=== PATIENT | female | born 1955 | race Hispanic/Latino ===

== ENCOUNTER 2017-01-29 14:38 | Inpatient (IN) | payer OTHER ==
[~2017-01-29] VITALS: Ht 160 cm; Wt 65.8 kg
[~2017-01-29 14:38] MED LIST: GLUCOPHAGE500 MG PO; GOOD SENSE ASP325 MG PO; HEPARIN 2525000 UNI1 IV; LOPRESSOR 25MG25 MG PO; NOVOLIN R1000 UNIT2 SC; PLAVIX 75MG TAB75 MG PO; PRINIVIL 5MG5 MG PO; SIMVASTATIN40 MG PO
--- NOTE | 2017-01-29 14:49 | NUR ---
PT TO ED C/O CHEST PAIN AND "FEELING UNDER THE WEATHER" SINCE SUNDAY. ALSO C/O RIGHT SIDED JAW PAIN SINCE SUNDAY. ALSO STATES SUDDEN SHARP CHEST PAIN THAT COMES AND GOES. DENIES V/D. C/O NAUSEA. MOLD CLOSER HELPER IS DR CARRERA. PT HAS HAD CARDIAC STENTS IN THE PAST. EKG DONE. VSS.
--- NOTE | 2017-01-29 15:26 | ED CARDIAC/CP/PALPITATIONS ---
History of Present Illness General Chief Complaint: Chest Pain Stated Complaint: CHEST PAIN Source: patient, family, old records Exam Limitations: no limitations Allergies Coded Allergies: morphine (HYPERVENTILATE 01/29/17) Reconcile Medications Aspirin (Ecotrin*) 325 MG TABLET.DR 1 TAB PO QAM HEART/BLOOD (Reported) Glipizide (Glipizide ER) 10 MG TAB.ER.24 1 TAB PO QAM DM (Reported) Lisinopril 5 MG TABLET 1 TAB PO DAILY BP (Reported) Metformin HCl 500 MG TABLET 2 TAB PO BID DM (Reported) Metoprolol Tartrate 25 MG TABLET 1 TAB PO BID HEART/BP (Reported) Simvastatin (Simvastatin*) 40 MG TABLET 1 TAB PO QPM CHOLESTEROL (Reported) Triage Note: PT TO ED C/O CHEST PAIN AND "FEELING UNDER THE WEATHER" SINCE SUNDAY. ALSO C/O RIGHT SIDED JAW PAIN SINCE SUNDAY. ALSO STATES SUDDEN SHARP CHEST PAIN THAT COMES AND GOES. DENIES V/D. C/O NAUSEA. RESTAURANT GENERAL MANAGER IS DR CARRERA. PT HAS HAD CARDIAC STENTS IN THE PAST. EKG DONE. VSS. Triage Nurses Notes Reviewed? yes Aspirin Today: 325 mg x 1, provided at home HPI: Patient is a 61 year old female presents complaining of chest pain onset on Sunday. Pain is dull to bilateral chest. Cough onset on , nonproductive. Decreased appetite. Associated dyspnea with exertion. Chest pain is continuous since onset, patient has 2-3 second episodes intermittently of sharp severe pain that improves with rest. Intermittent right jaw pain. Nausea and vomiting on Sunday, none since then. Mild improvement with taking Ibuprofen and pressing on her chest wall. Symptoms feel similar to previous when patient needed a cardiac stent. Denies lower extremity swelling, fevers, chills. Patient took 325mg of Aspirin today. (JANICE VOGT,MIKE) Vital Signs & Intake/Output Vital Signs & Intake/Output Vital Signs Date Time Temp Pulse Resp B/P Pulse O2 O2 Flow FiO2 Ox Delivery Rate 01/29 1913 96.9 56 16 117/67 98 Room Air 01/29 1624 96.5 59 20 122/71 97 Room Air 01/29 1537 97 01/29 1446 96.6 76 20 103/70 100 Room Air Past History Travel History Traveled to [place] past 21 day No Medical History Any Pertinent Medical History? see below for history Neurological: migraine, TIA EENT: NONE Cardiovascular: CAD (s/p PCI of the LCX), hypertension, hyperlipidemia Respiratory: NONE Gastrointestinal: GERD Hepatic: GALLSTONES Renal: nephrolithiasis Musculoskeletal: NONE Psychiatric: insomnia Endocrine: diabetes Blood Disorders: NONE Cancer(s): NONE MEDIA MARKETING COORDINATOR/Reproductive: NONE History of MRSA: No History of VRE: No History of CDIFF: No Pneumonia Vaccine: 11/26/13 Influenza Vaccine: 12/09/08 Surgical History Surgical History: cholecystectomy, hysterectomy (total abdominal), cardiac stent Psychosocial History Who do you live with Son Services at Home None What is your primary language Kuwaiti Tobacco Use: Current Daily Use Daily Tobacco Use Amount/Type: => 5 Cigarettes daily ETOH Use: denies use Illicit Drug Use: denies illicit drug use Family History Family History, If Any: MOTHER Relation not specified for: FH: diabetes mellitus Hx Contributory? No (MIKE WATKINS) Review of Systems Review of Systems Constitutional: Reports: diaphoresis (none currently). Denies: chills, fever. EENTM: Reports: no symptoms. Respiratory: Reports: short of breath (with exertion). Denies: cough. Cardiovascular: Reports: see HPI. Denies: peripheral edema, syncope. GI: Reports: nausea, vomiting. Denies: abdominal pain. Genitourinary: Reports: no symptoms. Musculoskeletal: Reports: back pain. Skin: Reports: no symptoms. Neurological/Psychological: Reports: no symptoms. Hematologic/Endocrine: Reports: no symptoms. Immunologic/Allergic: Reports: no symptoms. (MIKE WATKINS) Physical Exam Physical Exam General Appearance: well developed/nourished, alert, awake Head: atraumatic, normal appearance Eyes: Bilateral: normal appearance, PERRL, EOMI. Ears, Nose, Throat: normal pharynx, normal ENT inspection, abnormal Tympanic (R) Neck: normal inspection, supple, full range of motion Respiratory: normal breath sounds, no respiratory distress, lungs clear Cardiovascular: regular rate/rhythm (no appreciable murmur) Peripheral Pulses: 2+ radial (R), 2+ radial (L), 1+ dorsalis pedis (R), 1+ dorsalis pedis (L) Gastrointestinal: normal bowel sounds, soft, non-tender Back: normal inspection, normal range of motion Extremities: normal inspection, normal capillary refill, normal range of motion, no edema Neurologic/Psych: no motor/sensory deficits, awake, alert, oriented x 3, normal mood/affect Skin: intact, normal color, warm/dry Lymphatic: no anterior cervical ino Core Measures ACS in differential dx? Yes ASA ordered for poss ACS? patient took aspirin at home today 325mg Severe Sepsis Present: No Septic Shock Present: No (MIKE WATKINS) Progress Differential Diagnosis: AMI, aortic dissection, atrial fibrillation, CHF/pulm edema, musculoskeletal pain, myocarditis, pericarditis, pneumonia, pneumothorax, pulmonary embolism, PUD/GERD, unstable angina, V-fib/V-Tach Diagnostic Imaging: Viewed by Me: Radiology Read. Discussed w/RAD: Radiology Read. CXR Impression: PATIENT: LILIBETH DOMINGUEZ I PRESENT AGE: 61 PATIENT ACCOUNT NO: [id number] : 56 LOCATION: [facility] ORDERING PHYSICIAN: MIKE VOGT SERVICE DATE: 01/29/17 EXAM TYPE: RAD - XRY- PORTABLE CHEST XRAY EXAMINATION: XR PORTABLE CHEST CLINICAL INFORMATION: Chest pain. COMPARISON: Portable chest x-ray 01/04/2016. TECHNIQUE: Portable AP view of the chest was obtained. FINDINGS: The lungs are well-expanded and clear without focal airspace consolidation. No pleural effusions or pneumothoraces are identified. Cardiomediastinal contours are within normal limits. Soft tissues are unremarkable. No acute osseous abnormality is identified. IMPRESSION: No acute pulmonary process. DICTATED BY: ANNABELLA PRADO MD DATE/TIME DICTATED:05/12 CHEERLEADING COACH:HARIS DATE/TIME TRANSCRIBED:01/29/171640 CONFIDENTIAL, DO NOT COPY WITHOUT APPROPRIATE AUTHORIZATION. <Electronically signed in Other Vendor System> SIGNED BY: ANNABELLA PRADO MD 01/29/171645 Initial ED EKG: normal axis, normal intervals, normal p-waves, normal QRS complex, normal sinus rhythm, no ST T wave changes Prior EKG: unchanged Comments: 01/29/2017 5:04:59 PM patient's case discussed with Dr. Palacios by me. (JANICE VOGT,MIKE) Plan of Care: Orders Procedure Date/time Status TROPONIN LEVEL 01/30 033 Active EKG 01/30 330 Active TROPONIN LEVEL 03/06 2130 Active EKG 01/29 2130 Active FingerStick- Glucose 01/29 1932 Active Code Status 01/29 1812 Active Admit to inpatient 01/29 1728 Active TRC EVALUATION (GEN) 01/29 1704 Active OXYGEN SETUP (GEN) 01/29 1704 Active Pathway - chart 01/29 1704 Active House Staff 01/29 1704 Active Patient Data 01/29 1704 Active Code Status 01/29 1704 Complete Patient Data 01/29 1652 Active Add-on Test (ER Only) 01/29 1625 Active PARTIAL THROMBOPLASTIN TIME 01/29 1534 Complete PROTHROMBIN TIME 01/29 1534 Complete Telemetry/Rotary Swaging Machine Operator 01/29 1525 Active TROPONIN LEVEL 01/29 1525 Complete COMPREHENSIVE METABOLIC PANEL 01/29 1525 Complete CBC WITHOUT DIFFERENTIAL 01/29 1525 Complete EKG 01/29 1440 Active VTE Mechanical Prophylaxis 01/29 UNK Active Vital Signs 01/29 UNK Active MISTAKE 01/29 UNK Active Telemetry/Rotary Swaging Machine Operator 01/29 UNK Active Intake & Output 01/29 UNK Active Current Medications Sig/Fletcher Start time Last Medication Dose Stop Time Status Admin Atorvastatin Calcium 20 MG 1700 01/30 1700 UNVr (Lipitor) Aspirin Buffered 325 MG QAM 01/30 1000 UNVr (Ecotrin) Clopidogrel Bisulfate 75 MG DAILY 01/30 1000 UNVr (Plavix) Lisinopril 5 MG DAILY 01/30 1000 AC (Prinivil) Insulin Aspart 0 TIDAC 01/30 0800 AC (NovoLOG) Metoprolol Tartrate 25 MG BID 01/29 2200 AC (Lopressor) Laboratory Tests 01/29/17 1536: Anion Gap 10, Estimated GFR > 60, BUN/Creatinine Ratio 25.0, Glucose 68, Calcium 9.6, Total Bilirubin 0.4, AST 35, ALT 48, Alkaline Phosphatase 74, Troponin I < 0.01, Total Protein 6.8, Albumin 3.9, Globulin 2.9, Albumin/Globulin Ratio 1.3, CBC w Diff NO MAN DIFF REQ, RBC 4.87, MCV 92.6, MCH 30.3, RDW 13.9, MPV 8.6, Gran % 51.3, Lymphocytes % 25.0, Monocytes % 8.4, Eosinophils % 14.3 H, Basophils % 1.0, Absolute Granulocytes 4.8, Absolute Lymphocytes 2.3, Absolute Monocytes 0.8 H, Absolute Eosinophils 1.3, Absolute Basophils 0.1, PUBS MCHC 32.7 L 01/29/17 1534: PT 10.5, INR 1.00, APTT 28 1625: Discussed with Dr. Carrera: recommends treating as unstable angina, give heparin and plavix and admit. Discussed with Dr. Don who will discuss with the hospitalist for admission. (MIKE WATKINS) Comments: 5:04pm pts case discussed by me with dr palacios (above note references this as well). (STEPHANIE CLAROS,ARI Priest) Departure Departure Time of Disposition: 1625 Disposition: STILL A PATIENT Condition: Stable Clinical Impression Primary Impression: Unstable angina Referrals: DARIAN CLAROS,TYLER Morris (PCP/Family) Departure Forms: Customer Survey General Discharge Information Admission Note Spoke With: DEANDRE CLAROS PhD,MANOJ Escobedo Documentation of Exam: Documentation of any treatments & extenuating circumstances including Concerns Regarding Discharge (functional status, medication knowledge or non-compliance, living conditions, etc.) that warrant an admission rather than observation: IV heparin, cardiology consultation, serial ekg, serial labs. Similar to previous chest pain that required cardiac stenting. Echocardiogram, possible stress test. May require transfer for cardiac catheterization (MIKE WATKINS) PA/DISTRICT MANAGER MAJOR ACCOUNTS SALES Co-Sign Statement Statement: ED Attending supervision documentation- [] I saw and evaluated the patient. I have also reviewed all the pertinent lab results and diagnostic results. I agree with the findings and the plan of care as documented in the PA's/DISTRICT MANAGER MAJOR ACCOUNTS SALES's documentation. [x] I have reviewed the ED Record and agree with the PA's/DISTRICT MANAGER MAJOR ACCOUNTS SALES's documentation. [] Additions or exceptions (if any) to the PAs/DISTRICT MANAGER MAJOR ACCOUNTS SALES's note and plan are summarized below: [] (STEPHANIE CLAROS,ARI Priest) Critical Care Note Critical Care Note Critical Care Time: 30-74 min (MIKE WATKINS)
--- NOTE | 2017-01-29 15:35 | NUR ---
TRIAGE NOTE APPRECIATED PT STATES SHE GETS SOB WHILE CLIMBING STAIRS CHEST PAIN ON AND OFF THAT LAST A FEW SECONDS. PT STATES THAT SHE HAS BURNING IN HER CHEST AT TIMES PT WITH HX OF STENT BLOODS DRAWN AND SENT IV ESTABLISHED PA STUDENT AT BEDSIDE FOR EVAL. PT ON MONITOR HR IN THE 60'S NSR
[2017-01-29 15:40] LABS: ABSOLUTE BASOPHIL COUNT 0.1 /CUMM (0.0-0.2); ABSOLUTE EOSINOPHIL COUNT 1.3 /CUMM (0.0-0.7); ABSOLUTE GRANULOCYTE CT 4.8 /CUMM (1.4-6.5); ABSOLUTE LYMPH COUNT 2.3 /CUMM (1.2-3.4); ABSOLUTE MONOCYTE COUNT 0.8 /CUMM (0.10-0.60); EOSINOPHIL % 14.3 % (0-5); GRANULOCYTE % 51.3 % (42.2-75.2); HEMATOCRIT 45.2 % (37-47); MEAN CORPUSCULAR HGB 30.3 PG (27.0-31.0); MEAN CORPUSCULAR HGB CONC 32.7 G/DL (33.0-37.0); MEAN CORPUSCULAR VOLUME 92.6 FL (81.0-99.0); MEAN PLATELET VOLUME 8.6 FL (7.4-10.4); PLATELET COUNT 171 /CUMM (130-400); RBC DISTRIBUTION WIDTH 13.9 % (11.5-14.5); RED BLOOD CELL CT 4.87 /CUMM (4.20-5.40); WHITE BLOOD CELL COUNT 9.4 /CUMM (4.8-10.8)
[2017-01-29] MEDS ORDERED: SIMVASTATIN40 M1 PO (16:14)
[2017-01-29] MEDS ORDERED: ASPIRIN EC325 M2 PO (16:15)
[2017-01-29] MEDS ORDERED: METFORMIN HCL500 M3 PO (16:15)
[2017-01-29] MEDS ORDERED: METOPROLOL TART25 M1 PO (16:15)
[2017-01-29] MEDS ORDERED: LISINOPRIL5 M1 PO (16:15)
[2017-01-29] MEDS ORDERED: GLIPIZIDE ER10 M1 PO (16:16)
--- NOTE | 2017-01-29 16:37 | Cons- Cardiology ---
General Information and HPI Consulting Request Date of Consult: 01/29/17 Requested By: ER History of Present Illness: Carly is a 61 year old female who carries a history of diabetes, TIA, and tobacco abuse. She also has a history of coronary artery disease and is s/p stent placement to her left circumflex. Carly was in her usual state of good health until when she noted shortness of breath. On Sunday, her symptoms progressed to a moderate right to midsternal chest pressure that radiated to her right neck. This discomfort is very similar to that experienced prior to her PCI of the LCX. This discomfort is currently mild but not resolved. Carly also has a cough but does not think that her chest discomfort is related to chest soreness from coughing. At baseline Carly is active without chest discomfort, lightheadedness or palpitations. The exception is some exertional shortness of breath that is unchanged. Last December this patient complained of chest discomfort and in response to this symptom I opted to repeat a cardiac catheterization. This study showed a 50% mid LAD lesion which was evaluated by fractional flow reserved and was not found to be flow limiting. She has a patent left main and luminal irregularities in her LCX and non-dominant RCA with an EF of 55% . Her LCX is patent at the prior stent site. Carly has had some intermittent cramps in her right leg. To Review This Patient's Past History: In March of 2012, Carly experienced a moderate midsternal chest pressure radiating to her arms associated with shortness of breath, diaphoresis, and palpitations. A stress test was therefore performed which was remarkable for chest discomfort and ST elevations in the inferior and lateral leads. ST depressions were also noted. In consideration of the above, cardiac catheterization was performed in April of 2012 and this procedure disclosed a 99% mid left circumflex lesion which was dilated and stented with a 4.0 x 12 mm drug coated Resolute stent to zero percent residual stenosis with normal flow. The stent crossed a moderate size obtuse marginal II which was dilated with a 2.0 x 8.0 mm balloon to a 30% non-flow limiting residual stenosis. Otherwise, the patient's coronary anatomy consists of a normal left main. The LAD had luminal irregularities. This was a large vessel that wrapped around the apex. The RCA was nondominant, patent, and tortuous. Her overall EF was normal at 55%. The patient's last echo showed a normal EF of 60% with trace MR and mild TR. Allergies/Medications Allergies: Coded Allergies: morphine (HYPERVENTILATE 01/29/17) Home Med List: Aspirin (Ecotrin*) 325 MG TABLET.DR 1 TAB PO QAM HEART/BLOOD (Reported) Glipizide (Glipizide ER) 10 MG TAB.ER.24 1 TAB PO QAM DM (Reported) Lisinopril 5 MG TABLET 1 TAB PO DAILY BP (Reported) Metformin HCl 500 MG TABLET 2 TAB PO BID DM (Reported) Metoprolol Tartrate 25 MG TABLET 1 TAB PO BID HEART/BP (Reported) Simvastatin (Simvastatin*) 40 MG TABLET 1 TAB PO QPM CHOLESTEROL (Reported) Past History Travel History Traveled to [place] past 21 day No Medical History Neurological: migraine, TIA EENT: NONE Cardiovascular: CAD (s/p PCI of the LCX), hypertension, hyperlipidemia Respiratory: NONE Gastrointestinal: GERD Hepatic: GALLSTONES Renal: nephrolithiasis Musculoskeletal: NONE Psychiatric: insomnia Endocrine: diabetes Blood Disorders: NONE Cancer(s): NONE STAFF CYTOTECHNOLOGIST/Reproductive: NONE Surgical History Surgical History: cholecystectomy, hysterectomy (total abdominal), cardiac stent Family History Relations & Conditions If Any: MOTHER Relation not specified for: FH: diabetes mellitus Psychosocial History Who Do You Live With? self Services at Home: None Primary Language: Guinean Smoking Status: Former Smoker (1/2 ppd until 2013) ETOH Use: denies use Illicit Drug Use: denies illicit drug use Exam & Diagnostic Data Vital Signs and I&O Vital Signs Date Time Temp Pulse Resp B/P Pulse O2 O2 Flow FiO2 Ox Delivery Rate 01/29 1624 96.5 59 20 122/71 97 Room Air 01/29 1537 97 01/29 1446 96.6 76 20 103/70 100 Room Air Intake & Output 01/29 1600 01/29 0800 / 0000 01/28 1600 01/28 0800 01/28 0000 Intake Total 0 Output Total Balance 0 Intake, Oral 0 Patient 145 lb Weight Physical Exam: General: WD/ WN female in NAD; alert and oriented x 3 HEENT: NC/AT, PERRL, EOMI, clear oropharyx with mmm Neck: no JVD, no carotid bruit Heart: RRR w/o murmur Lungs: clear bilaterally Abdomen: soft, NT, +ve bowel sounds Extremties: no edema Assessment/Plan Assessment/Plan * This patient has symptoms that are suggestive of unstable angina. We will begin IV heparin, and Plavix and will continue aspirin. Her heart rate appears to be well controlled. We will monitor her on telemetry and if recurrent chest discomfort will also begin NTG past. Follow three sets of cardiac enzymes. Continue her statin. In consideration of her cough that is suspected to be from Lisinopril, we will stop this medication in favor of Losartan 25mg daily. * It should be recalled that this patient has a moderate size OM2 that underwent plain balloon angioplasty and this vessel is at increased risk for restenosis compared with a stented vessel. It did look well on her most recent cardiac catheterization however. She continues to harbor a 50% mid LAD lesion that on her last cardiac catheterization did not appear to be flow limiting. Consult Acknowledgment - Thank you for your consult request.
--- NOTE | 2017-01-29 16:46 | RADIOLOGY REPORT ---
EXAMINATION: XR PORTABLE CHEST CLINICAL INFORMATION: Chest pain. COMPARISON: Portable chest x-ray 01/04/2016. TECHNIQUE: Portable AP view of the chest was obtained. FINDINGS: The lungs are well-expanded and clear without focal airspace consolidation. No pleural effusions or pneumothoraces are identified. Cardiomediastinal contours are within normal limits. Soft tissues are unremarkable. No acute osseous abnormality is identified. IMPRESSION: No acute pulmonary process.
--- NOTE | 2017-01-29 16:48 | NUR ---
IV HEPRIN IFUSING DIRECTED PT AMBULATED TO BR GAIT STEADY
[2017-01-29 16:55] LABS: PT 10.5 SEC (9.4-12.5); PTT 28 SEC (25-37)
--- NOTE | 2017-01-29 17:05 | History & Physical ---
TIFFANIJANEANUPTORI 01/29/17 1704: General Information and HPI MD Statement: I have seen and personally examined LILIBETH DOMINGUEZ I and documented this H&P. The patient is a 61 year old F who presented with a patient stated chief complaint of chest pain Source of Information: patient, old records Exam Limitations: no limitations History of Present Illness: 61-year-old woman with past medical history significant for history of diabetes mellitus 2, dyslipidemia, TIA, coronary artery disease and is s/p stent placement to her left circumflex (April 2012) came to [facility] for evaluation of chest pain. Stated that she has been feeling short of breath since when walking up stairs, doing laundry. Prior to that she was at her baseline. On Sunday she was woken up by midsternal chest pain that was 6 out of 10, she also remembers having left-sided jaw pain at that time. Since then she's been having intermittent chest pressure at rest that lasts a few seconds and she's been having these episodes up to 3 to times a day. On interview she stated that her pain was 3 out of 10. Also reports some palpitations on exertion. Denies lower extremity swelling, fever, chills, orthopnea. Allergies/Medications Allergies: Coded Allergies: morphine (HYPERVENTILATE 01/29/17) Home Med list Aspirin (Ecotrin*) 325 MG TABLET.DR 1 TAB PO QAM HEART/BLOOD (Reported) Glipizide (Glipizide ER) 10 MG TAB.ER.24 1 TAB PO QAM DM (Reported) Lisinopril 5 MG TABLET 1 TAB PO DAILY BP (Reported) Metformin HCl 500 MG TABLET 2 TAB PO BID DM (Reported) Metoprolol Tartrate 25 MG TABLET 1 TAB PO BID HEART/BP (Reported) Simvastatin (Simvastatin*) 40 MG TABLET 1 TAB PO QPM CHOLESTEROL (Reported) Compliance With Home Meds: GOOD Past History Travel History Traveled to [place] past 21 day No Medical History Neurological: migraine, TIA EENT: NONE Cardiovascular: CAD (s/p PCI of the LCX), hypertension, hyperlipidemia Respiratory: NONE Gastrointestinal: GERD Hepatic: GALLSTONES Renal: nephrolithiasis Musculoskeletal: NONE Psychiatric: insomnia Endocrine: diabetes Blood Disorders: NONE Cancer(s): NONE RIPENING ROOM OPERATOR/Reproductive: NONE History of MRSA: No History of VRE: No History of CDIFF: No Pneumonia Vaccine: 11/26/13 Influenza Vaccine: 12/09/08 Surgical History Surgical History: cholecystectomy, hysterectomy (total abdominal), cardiac stent Past Family/Social History Family History Relations & Conditions if any MOTHER FH: breast cancer in first degree relative MOTHER Relation not specified for: FH: diabetes mellitus Psychosocial History Who Do You Live With? self Services at Home: None Primary Language: Zambian Smoking Status: Current Some Day Smoker (/ ppd until 2013) ETOH Use: denies use Illicit Drug Use: denies illicit drug use Functional Ability ADLs Independent: dressing, eating, toileting, bathing. Ambulation: independent IADLs Independent: shopping, housework, finances, food prep, telephone, transportation , medication admin. Review of Systems Review of Systems Constitutional: Denies: chills, diaphoresis, fever, malaise, weakness, unexplained weight loss. Cardiovascular: Reports: chest pain, palpitations. Denies: edema, orthopena, peripheral edema, syncope. Respiratory: Denies: cough, hemoptysis, orthopnea, short of breath, sputum production, stridor, wheezing. GI: Denies: abdominal pain, bloating, constipation, diarrhea, distention, bowel incontinence, melena, nausea, bloody stool, changes in stool, vomiting, steatorrhea. Genitourinary: Denies: discharge, dysuria, frequency, hematuria, hesitation, nocturia, pain, urgency. Exam & Diagnostic Data Last 24 Hrs of Vital Signs/I&O Vital Signs Date Time Temp Pulse Resp B/P Pulse O2 O2 Flow FiO2 Ox Delivery Rate 01/29 1913 96.9 56 16 117/67 98 Room Air 01/29 1624 96.5 59 20 122/71 97 Room Air 01/29 1537 97 01/29 1446 96.6 76 20 103/70 100 Room Air Intake & Output 01/29 1600 01/29 0800 01/29 0000 Intake Total 0 Output Total Balance 0 Intake, Oral 0 Patient 145 lb Weight Physical Exam General Appearance Alert, Oriented X3, Cooperative, No Acute Distress Skin No Significant Lesion HEENT Atraumatic, PERRLA, EOMI, Mucous Membr. moist/pink Neck Supple, No JVD, +2 Carotid Pulse wo Bruit Lymphatic Cervical nl Cardiovascular Regular Rate, Normal S1, Normal S2 Lungs Clear to Auscultation, Normal Air Movement Abdomen Normal Bowel Sounds, Soft, No Tenderness Extremities No Edema Last 24 Hrs of Labs/Tacos: Laboratory Tests 01/29/17 1536: Anion Gap 10, Estimated GFR > 60, BUN/Creatinine Ratio 25.0, Glucose 68, Calcium 9.6, Total Bilirubin 0.4, AST 35, ALT 48, Alkaline Phosphatase 74, Troponin I < 0.01, Total Protein 6.8, Albumin 3.9, Globulin 2.9, Albumin/Globulin Ratio 1.3, CBC w Diff NO MAN DIFF REQ, RBC 4.87, MCV 92.6, MCH 30.3, RDW 13.9, MPV 8.6, Gran % 51.3, Lymphocytes % 25.0, Monocytes % 8.4, Eosinophils % 14.3 H, Basophils % 1.0, Absolute Granulocytes 4.8, Absolute Lymphocytes 2.3, Absolute Monocytes 0.8 H, Absolute Eosinophils 1.3, Absolute Basophils 0.1, PUBS MCHC 32.7 L 01/29/17 1534: PT 10.5, INR 1.00, APTT 28 Diagnostic Data EKG Results NSR T wave inversions in lead III, V2 seen in previous EKG CXR Results SERVICE DATE: 01/29/17-161 EXAM TYPE: RAD - XRY-PORTABLE CHEST XRAY FINDINGS: The lungs are well-expanded and clear without focal airspace consolidation. No pleural effusions or pneumothoraces are identified. Cardiomediastinal contours are within normal limits. Soft tissues are unremarkable. No acute osseous abnormality is identified. IMPRESSION: No acute pulmonary process. Assessment/Plan Assessment: 61-year-old woman with past medical history significant for history of diabetes mellitus 2, dyslipidemia, TIA, coronary artery disease and is s/p stent placement to her left circumflex (April 2012) As Ranked By This Provider Problem List: 1. CHEST PAIN Assessment/Plan Most likely unstable angina given her extensive cardiac history will monitor on telemetry Cardiology aware of patient and recommended starting IV heparin and Plavix along with aspirin Nitropaste for pain management Will trend EKG and troponin to rule out ACS Continue statin Cardiology recommending lisinopril to be discontinued secondary to her cough and losartan to be started 2. Diabetes Assessment/Plan Monitor fingersticks Hold metformin while in the hospital, Place on sliding scale 3. Hypertension Assessment/Plan Continue Lopressor 4. DVT prophylaxis 5. Full code status Core Measures/Miscellaneous Acute Coronary Syndrome ACS Diagnosis: No Cerebrovascular Accident CVA/TIA Diagnosis: No Congestive Heart Failure CHF Diagnosis: No Venous Thromboembolism VTE Risk Factors: Age > 40 [facility] prophylaxis d/t: No contraindications No VTE Pharm Prophylaxis d/t: No contraindications VTE Diagnosis: No VTE Type: NONE VTE Confirmed by (Test): NONE Severe Sepsis Severe Sepsis Present: No Septic Shock Septic Shock Present: No Miscellaneous Documentation Attending Case Discussed With: ALEX CHAVEZ MD Primary Care Physician: TYLER FARMER MD Patient sees these Specialists Dr. Zelaya Level of Patient Care: Telemetry CONSTANTINO MUNIZ 01/29/17 1748: Resident Review Statement Resident Statement: examined this patient, discussed with architecture intern, agreed with architecture intern, reviewed images Other Findings: This is a 61-year-old lady with past medical history significant for CAD status post stent placement to her left circumflex, TIA, diabetes, tobacco dependence who presents to the hospital with intermittent chest pain for 3 days. According to the patient, her chest pains start at rest but worsen w/exertion. Her chest pains are mid-strenal, 6/10, radiating to her right jaw. She has also been experiencing occasional episodes of exertional dyspnea, palpitation. The patient denies any chest discomfort/pain at the time of our interview. She also reprots chronic cough. Denies fevers/chills, nausea, vomiting, dizziness, lightheadedness, palpitation. Had cardiac cath Dec 2015 which showed EF of 50%. VS: T: 96.6, WI 76, BP 103/70, RR 20, O2 sat 100% RA Ph/Ex: AAOx3, NAD, HEENT: Moist mm, head NCAT, PERRLA, EOMI Neck: Supple, no JVD , no carotid bruits, no LAD. CV: RRR, no murmur. Lungs: CTABL, Abdomen: NL BS, Sotf, NT, ND. Ext: No edema. Neurology exam non-focal. Reflexes/pulse wnl and symm. Pertinent Lab data: CBC/BEP unremarkable EKG: NSR T wave inversions noted in lead III, V2 (also present in previous EKG) CXR: No acute pulmonary process. Problem list/Plan: #Chest pain: * Likely Unstable Angina * Cardiology was consulted in the ED and the patient was started on heparin drip and plavix * campus monitor * Echo done Dec 2015 (ejection fraction NL) : No need for a repeat echo at this point. * r/o ACS w/serial trop/ekg * Check TFT * Check stool for hemoccult. * Add nitrated to regimen if patient develops recurrent CP. * C/W Statins, BB, ASA * Will change Lisinopril to Losartan 2/2 cough #DM: * Chronic/stable * Cardiac/DM diet * Accucheks * Will hold oral diabetic meds while admitted to the hospital and maintain her on INS SS. # HTN: * Chronic/Stable * C/W home meds including metoptrolol 25 MG BID. #Tobacco dependence: * Smoking cessation counseling done. #DVT PPX: Pt on hepari drip #Code Status: * ALEX PEREIRA MD 01/29/17 7881: Attending MD Review Statement Attending Statement Attending MD Statement: examined this patient, discuss w/resident/PA/SHEET METAL ASSEMBLER, agreed w/resident/PA/SHEET METAL ASSEMBLER, reviewed EMR data (avail) Attending Assessment/Plan: 61F PMH HTN, T2DM, active smoker, CAD s/p stent to LCx, last cardiac cath one year ago presenting with 3 days of intermittent chest pain occuring at rest and worsening with exertion, associated with dyspnea on exertion, and generalized fatigue. EKG NSR no acute changes, first troponin negative. Symptoms highly suspicious for unstable angina. Patient is comfortable now at rest after receiving morphine. Plan - Admit to telemetry - Heparin drip - Continue ASA and Plavix - Continue statin and ACEi - Serial enzymes and EKG - Cardiology consult with Dr. Zelaya - Continue home medications
--- NOTE | 2017-01-29 17:46 | NUR ---
HOUSE STAFF IN TO SEE PT
--- NOTE | 2017-01-29 18:46 | NUR ---
Emergency Dept [facility] Admit Note: To be admitted to [facility] by APERGIS with UNSTABLE ANGINA as the diagnosis, to [phone] location. Nursing Workers' Compensation Magistrate and admitting notified 01/29/17 at 0410
--- NOTE | 2017-01-29 19:14 | Admission Certification ---
Admission Certification Certification Statement - As attending physician, I certify that at the time of - admission, based on clinical presentation, severity of - symptoms, need for further diagnostic testing and - therapeutic interventions, and risk of adverse outcomes - without in-hospital treatment, in my clinical assessment, - this patient requires an acute hospital stay for a minimum - of two nights or longer. I have also considered psychsocial - factors such as support system, advanced age, financial - issues, cognitive issues, and failed out-patient treatments, - past re-admission history, safety of patient, and lack of - compliance as applicable. Specific rationale supporting this admission is: Unstable angina
--- NOTE | 2017-01-29 19:19 | NUR ---
REPORT GIVEN TO TEREZA SCHRADER
[2017-01-29 21:50] VITALS: BP 100/60; BP 138/78
[2017-01-29 23:21] LABS: PTT 62 SEC (25-37)
[2017-01-30 01:11] VITALS: BP 110/70
[2017-01-30 03:56] LABS: ABSOLUTE BASOPHIL COUNT 0 /CUMM (0.0-0.2); ABSOLUTE EOSINOPHIL COUNT 1.3 /CUMM (0.0-0.7); ABSOLUTE GRANULOCYTE CT 2.7 /CUMM (1.4-6.5); ABSOLUTE LYMPH COUNT 2.4 /CUMM (1.2-3.4); ABSOLUTE MONOCYTE COUNT 0.7 /CUMM (0.10-0.60); BASOPHIL % 0.5 % (0.0-2.0); EOSINOPHIL % 18.1 % (0-5); GRANULOCYTE % 38.2 % (42.2-75.2); HEMATOCRIT 40.7 % (37-47); MEAN CORPUSCULAR HGB 30.9 PG (27.0-31.0); MEAN CORPUSCULAR HGB CONC 33.3 G/DL (33.0-37.0); MEAN CORPUSCULAR VOLUME 92.8 FL (81.0-99.0); PLATELET COUNT 154 /CUMM (130-400); RBC DISTRIBUTION WIDTH 14.1 % (11.5-14.5); RED BLOOD CELL CT 4.39 /CUMM (4.20-5.40); WHITE BLOOD CELL COUNT 7.2 /CUMM (4.8-10.8)
[2017-01-30 07:48] VITALS: BP 112/74
--- NOTE | 2017-01-30 10:39 | PN- Cardiology ---
Subjective Subjective: * Patient reports a persistent low grade chest discomfort. * Normal ECG and normal cardiac enzymes times 3 sets Objective Vital Signs and I&Os Vital Signs Date Time Temp Pulse Resp B/P Pulse O2 O2 Flow FiO2 Ox Delivery Rate 01/30 0748 98.1 78 20 112/74 95 Room Air 01/30 0111 98.0 69 20 110/70 92 Room Air 01/29 2250 98 03/ 2246 61 138/78 03/ 2150 97.8 61 20 138/78 96 Room Air 01/29 2119 Room Air 01/29 1913 96.9 56 16 117/67 98 Room Air 01/29 1624 96.5 59 20 122/71 97 Room Air 01/29 1537 97 03/ 1446 96.6 76 20 103/70 100 Room Air Intake & Output 01/30 1600 01/30 0800 / 0000 / 1600 01/29 0800 03/ 0000 Intake Total 575 240 0 Output Total Balance 575 240 0 Intake, IV 95 Intake, Oral 480 240 0 Patient 145 lb 145 lb Weight Physical Exam: General: WD/ WN female in NAD; alert and oriented x 3 HEENT: NC/AT, PERRL, EOMI, clear oropharyx with mmm Heart: RRR w/o murmur Lungs: clear bilaterally Extremties: no edema Assessment/Plan Assessment/Plan * This patient continues to have mild, but constant chest discomfort without any rise in cardiac enzymes or electrocardiographic changes. I have only a moderate suspicion of myocardial ischemia. This patient should be risk stratified with a treadmill nuclear stress test. The patient feels tired and is not up to this today. We can consider doing this as an outpatient. * Continue her current drug regimen including Losartan instead of Lisinopril. There is the possibility of musculoskeletal pain due to coughing. Continue telemetry? Yes
[2017-01-30 12:19] LABS: PTT 42 SEC (25-37)
--- NOTE | 2017-01-30 12:59 | PN- Housestaff ---
TORI ORELLANA 01/30/17 1259: Subjective Follow-up For: instable angina Tele-Events Since Last Visit: Sinus rhythm, heart rate 70 to 80s one transient episode down to 43 no overnight events Subjective: Seen and examined patient, offers no complaints says she is currently chest pain -free. Denies shortness of breath. Review of Systems Constitutional: Denies: chills, diaphoresis, fever, malaise, weakness, unexplained weight loss. Cardiovascular: Denies: chest pain, edema, orthopena, palpitations, peripheral edema, syncope. Respiratory: Denies: cough, hemoptysis, orthopnea, short of breath, sputum production, stridor, wheezing. Objective Last 24 Hrs of Vital Signs/I&O Vital Signs Date Time Temp Pulse Resp B/P Pulse O2 O2 Flow FiO2 Ox Delivery Rate 01/30 1613 98.1 59 20 120/72 96 Room Air / 1048 78 112/74 03/ 1048 78 112/74 03/ 0748 98.1 78 20 112/74 95 Room Air 03/ 0111 98.0 69 20 110/70 92 Room Air 03/06 2250 98 03/06 2246 61 138/78 03/06 2150 97.8 61 20 138/78 96 Room Air 03/ 2119 Room Air / 1913 96.9 56 16 117/67 98 Room Air Intake & Output 01/30 1600 /07 0800 03/ 0000 Intake Total 875 575 240 Output Total 800 Balance 75 575 240 Intake, IV 125 95 Intake, Oral 750 480 240 Output, Urine 800 Patient 145 lb Weight Physical Exam General Appearance: Alert, Oriented X3, Cooperative, No Acute Distress Neck: Supple Cardiovascular: Regular Rate, Normal S1, Normal S2 Lungs: Clear to Auscultation, Normal Air Movement Extremities: No Edema Current Medications: Current Medications Sig/Fletcher Start time Last Medication Dose Route Stop Time Status Admin Acetaminophen 325 MG Q6-PRN PRN 01/30 0130 AC PO Aspirin Buffered 325 MG QAM 01/30 1000 AC 01/30 PO 1048 Atorvastatin Calcium 20 MG 1700 01/30 1700 AC 01/30 PO 1627 Benzocaine/Menthol 1 MOLINA Q2P PRN 01/29 2300 AC PO Clopidogrel Bisulfate 75 MG DAILY 01/30 1000 AC 01/30 PO 1048 Heparin Sodium 25,000 UNIT Q24H 01/29 1630 AC 01/30 (Porcine) IV 01/31 06 1627 Sodium Chloride 500 ML Insulin Aspart 0 TIDAC 01/30 0800 AC SC Lisinopril 5 MG DAILY 01/30 1000 CAN PO Losartan Potassium 25 MG DAILY 01/30 1000 AC 01/30 PO 1048 Metoprolol Tartrate 25 MG BID 01/29 2200 AC 01/30 PO 01/31 0000 1048 Patient Medication 1 ED .[facility] 01/30 1355 [facility] ED 01/30 1356 Last 24 Hrs of Lab/Tacos Results Last 24 Hrs of Labs/Mics: Laboratory Tests 01/30/17 1650: APTT > 120 *H 01/30/17 1030: APTT 42 H 01/30/17 0330: Troponin I < 0.01 01/30/17 0330: Anion Gap 7, Estimated GFR > 60, BUN/Creatinine Ratio 22.9, CBC w Diff MAN DIFF ORDERED, RBC 4.39, MCV 92.8, MCH 30.9, RDW 14.1, MPV 9.0, Gran % 38.2 L, Lymphocytes % 33.7, Monocytes % 9.5 H, Eosinophils % 18.1 H, Basophils % 0.5, Absolute Granulocytes 2.7, Segmented Neutrophils 49, Band Neutrophils 1, Absolute Lymphocytes 2.4, Lymphocytes 22, Monocytes 12 H, Absolute Monocytes 0.7 H, Eosinophils 16 H, Absolute Eosinophils 1.3, Absolute Basophils 0, Platelet Estimate ADEQUATE, Normocytic RBCs VERIFIED, Normochromic RBCs VERIFIED , PUBS MCHC 33.3 01/29/172201: Troponin I < 0.01, APTT 62 H Assessment/Plan Assessment: 61-year-old woman with past medical history significant for history of diabetes mellitus 2, dyslipidemia, TIA, coronary artery disease and is s/p stent placement to her left circumflex (April 2012) came to [facility] for evaluation of chest pain. Troponin negative 3 EKG shows no new changes. Remains chest pain-free Problem list And stable angina Diabetes mellitus TIA Current artery disease status post stent placement Dyslipidemia plan nothing by mouth for nuclear exercise stress test tomorrow. We'll also hold her morning dose of beta wesley tomorrow. IV heparin drip to be discontinued 6 AM tomorrow Continue home meds of Lipitor, Cozaar, Plavix, aspirin Monitor fingersticks, to use insulin sliding scale patient has indicated that she would like to try nicotine patch upon discharge to help with smoking cessation. DVT prophylaxis: IV heparin Patient is full code Problem List: 1. CHEST PAIN 2. Diabetes mellitus type 1 3. Unstable angina 4. Diabetes 5. Hypertension Pain Ratin Pain Location: na Pain Goal: Pain 4 or less Pain Plan: current regimen Tomorrow's Labs & Rationales: none required ULISSES CAM MD 01/30/17 1357: Attending MD Review Statement Attending Statement Attending MD Statement: examined this patient, discuss w/resident/PA/NAIL WELTER, agreed w/resident/PA/NAIL WELTER, reviewed EMR data (avail), discussed with nursing, discussed with case mgmt, reviewed images Attending Assessment/Plan: 61-year-old female multiple risk factors including known coronary artery disease with previous stents in 2011, hypertension, diabetes, active tobacco use is here with symptoms suggestive of unstable angina. She is on aspirin and Plavix, beta wesley and an arb now. She is ruled out with serial troponins and the plan is a nuclear stress test in a.m. She would much rather not exercise and wants exercise to be simulated with Persantine or adenosine and the resident is going to follow-up with Dr. Zelaya about the same. She is not having any nicotine craving so will hold off on the patch or gum for now. Will f/u as per results of the stress test.
[2017-01-30 16:13] VITALS: BP 120/72
[2017-01-30 18:08] LABS: PTT > 120 SEC (25-37)
[2017-01-31] VITALS: BP 122/74
[2017-01-31 01:39] LABS: PTT 48 SEC (25-37)
[2017-01-31 08:00] VITALS: BP 122/80
--- NOTE | 2017-01-31 09:47 | PN- Housestaff ---
Subjective Follow-up For: Unstable angina Tele-Events Since Last Visit: Sinus rhythm, heart rate 55-62 Subjective: Seen and examined patient, remains chest pain-free. Denies shortness of breath, palpitations. Review of Systems Constitutional: Denies: chills, diaphoresis, fever, malaise, weakness, unexplained weight loss. Cardiovascular: Denies: chest pain, edema, orthopena, palpitations, peripheral edema, syncope. Respiratory: Denies: cough, hemoptysis, orthopnea, short of breath, sputum production, stridor, wheezing. Objective Last 24 Hrs of Vital Signs/I&O Vital Signs Date Time Temp Pulse Resp B/P Pulse O2 O2 Flow FiO2 Ox Delivery Rate 02/01 800 97.9 80 20 122/80 96 01/31 0000 98.4 70 22 122/74 96 Room Air 01/30 2052 70 122/74 01/30 1613 98.1 59 20 120/72 96 Room Air Intake & Output 01/31 1600 01/31 0800 01/31 0000 Intake Total 136 465.2 Output Total Balance 136 465.2 Intake, IV 136 115.2 Intake, Oral 0 350 Number 0 0 Bowel Movements Physical Exam General Appearance: Alert, Oriented X3, Cooperative, No Acute Distress Cardiovascular: Regular Rate, Normal S1, Normal S2 Lungs: Clear to Auscultation, Normal Air Movement Abdomen: Soft Extremities: No Edema Current Medications: Current Medications Sig/Fletcher Start time Last Medication Dose Route Stop Time Status Admin Acetaminophen 325 MG Q6-PRN PRN 01/30 0130 AC PO Aspirin Buffered 325 MG QAM 01/30 1000 AC 01/30 PO 1048 Atorvastatin Calcium 20 MG 1700 01/30 1700 AC 01/30 PO 1627 Benzocaine/Menthol 1 MOLINA Q2P PRN 01/29 2300 AC PO Clopidogrel Bisulfate 75 MG DAILY 01/30 1000 AC 01/30 PO 1048 Heparin Sodium 1,974 UNIT BOLUS ONE 01/31 0145 DC 01/31 (Porcine) IV 01/31 0146 0145 Heparin Sodium 5,000 UNIT .STK-MED ONE 01/31 0145 DC (Porcine) IV 01/31 0146 Heparin Sodium 25,000 UNIT Q24H 01/29 1630 DC 01/30 (Porcine) IV 01/31 0600 1627 Sodium Chloride 500 ML Insulin Aspart 0 TIDAC 01/30 0800 AC SC Losartan Potassium 25 MG DAILY 01/30 1000 AC 01/30 PO 1048 Metoprolol Tartrate 25 MG BID 01/29 2200 DC 01/30 PO 01/31 0000 2052 Ondansetron HCl 4 MG Q6 01/31 1315 AC 01/31 IV 1332 Last 24 Hrs of Lab/Tacos Results Last 24 Hrs of Labs/Mics: Laboratory Tests 01/31/17 0110: APTT 48 H 01/30/17 2330: APTT Cancelled 01/30/17 1650: APTT > 120 *H Assessment/Plan Assessment: 61-year-old woman with past medical history significant for history of diabetes mellitus 2, dyslipidemia, TIA, coronary artery disease and is s/p stent placement to her left circumflex (April 2012) came to [place] ED for evaluation of chest pain. Troponin negative 3 EKG shows no new changes. Remains chest pain-free. Problem list: unstable angina Diabetes mellitus TIA coronary artery disease status post stent placement Dyslipidemia plan: nuclear exercise stress test today, ordered appreciate recommendations Continue home meds of Lipitor, Cozaar, Plavix, aspirin Monitor fingersticks, continue insulin sliding scale will be discharged on nicotine patch for smoking cessation diabetic diet DVT: mechanical prophylaxis Patient is full code Problem List: 1. Hypertension 2. Diabetes 3. CHEST PAIN Pain Ratin Pain Location: na Pain Goal: Pain 4 or less Pain Plan: current regimen Tomorrow's Labs & Rationales: none required
--- NOTE | 2017-01-31 13:30 | NUR ---
1000: HOLD PATIENTS MEDS PER MD ORELLANA FOR STRESS TEST
[2017-01-31] MEDS ORDERED: LOSARTAN POTASS25 M1 PO (13:56)
--- NOTE | 2017-01-31 14:00 | Patient Discharge Instructions ---
Discharge Instructions General Discharge Information You were seen/treated for: Chest pain at rest You had these procedures: Exercise nuclear stress test Watch for these problems: sudden onset chest pain shortness of breath Special Instructions: Please follow-up with your primary care physician within one week of discharge Please follow-up with your financial sales representative within 1 week of discharge Your lisinopril has been stopped and changed to losartan please take that as prescribed Diet Continue normal diet: No Recommended Diet: Heart Healthy Acute Coronary Syndrome Inclusion Criteria At DC or during hospital stay patient has or had the following: ACS DIAGNOSIS No Discharge Core Measures Meds if any: Prescribed or Continued at Discharge Meds if any: NOT Prescribed or Continued at Discharge Congestive Heart Failure Inclusion Criteria At DC or during hospital stay patient has or had the following: CHF DIAGNOSIS No Discharge Core Measures Meds if any: Prescribed or Continued at Discharge Meds if any: NOT Prescribed or Continued at Discharge Cerebrovascular accident Inclusion Criteria At DC or during hospital stay patient has or had the following: CVA/TIA Diagnosis No Discharge Core Measures Meds if any: Prescribed or Continued at Discharge Meds if any: NOT Prescribed or Continued at Discharge Venous thromboembolism Inclusion Criteria VTE Diagnosis No VTE Type NONE VTE Confirmed by (Test) NONE Discharge Core Measures - Per Current guidelines, there needs to be overlap - treatment for the first 5 days of Warfarin therapy. - If discharged on Warfarin prior to 5 days of - overlap therapy, the patient will need to be - assessed for post discharge needs including - *Post discharge parental anticoagulation - *Warfarin and/or parental anticoagulation education - *Follow up date to check INR post discharge At least 5 days overlap therapy as Inpatient No Meds if any: Prescribed or Continued at Discharge Note: Overlap Therapy is Warfarin and Anticoagulant Meds if any: NOT Prescribed or Continued at Discharge
--- NOTE | 2017-01-31 14:23 | PN- Att Addend ---
Attending Addendum Attending Brief Note Patient seen and examined. Agree with internal control consultant's note. Initially she was very reluctant to go for a stress test and she is in a lot of discomfort from being nothing by mouth and not getting her morning coffee but we talked her into it. She finished the first part of her stress test and is now awaiting the resting images. She has multiple risk factors including known coronary artery disease and obviously I'm worried about ACS. If the nuclear stress test is negative than the plan is to discharge on maximal medical therapy with outpatient follow- up. Tobacco cessation counseled at length.
[2017-01-31 16:00] VITALS: BP 92/62
[2017-01-31 16:47] VITALS: BP 92/62
--- NOTE | 2017-01-31 16:48 | Discharge Summary ---
Visit Information Visit Dates Admission Date: 01/29/17 Discharge Date: 01/31/17 Hospital Course Course Attending Physician: TUTU CLAROS,ULISSES Neal Primary Care Physician: TYLER FARMER MD Hospital Course: 61-year-old woman current smoker with past medical history significant for history of diabetes mellitus 2, dyslipidemia, TIA, coronary artery disease and is s/p stent placement to her left circumflex (April 2012) was admitted to [facility] for evaluation of chest pain. Stated that she has been feeling short of breath since three days prior to admission, when walking up stairs ir doing laundry. Day she was woken up by midsternal chest pain that was 6 out of 10, she also remembers having left-sided jaw pain at that time. Vital on admission : T: 96.6, OH 76, BP 103/70, RR 20, O2 sat 100% Labs were unremarkable EKG: NSR T wave inversions noted in lead III, V2 (also present in previous EKG) CXR: No acute pulmonary process. [facility] No events were noted and she remained chest pain free. Troponins were negative and no new EKG changes were seen. Her symptoms were thought to be most likely unstable angina. Her child & adolescent psychiatrist Dr. Zelaya was consulted. She under went a Nulclear excercise stress test which was negative for [place]. Cardiology recomending changing to Losartan instead of Lisinopril as she complained of coughing. Ms Faria expressed interest in smoking cessation. She will benefit from outpatient management of smoking cessation, however nicotine patches are not advised from cardiac standpoint. Her oral hypoglycemics were held and she was kept on insulin sliding scale. Her home meds of Lipitor, Cozaar, Plavix and aspirin were continued. Complications: none Allergies: Coded Allergies: morphine (HYPERVENTILATE 01/29/17) Significant Procedures: SERVICE DATE: 01/29/17-161 EXAM TYPE: RAD - XRY-PORTABLE CHEST XRAY FINDINGS: The lungs are well-expanded and clear without focal airspace consolidation. No pleural effusions or pneumothoraces are identified. Cardiomediastinal contours are within normal limits. Soft tissues are unremarkable. No acute osseous abnormality is identified. IMPRESSION: No acute pulmonary process. SERVICE DATE: 01/31/17-1100 EXAM TYPE: NUC - MYOCARDIAL PERFUSION IMAGING EXERCISE STRESS AND RESTING SPECT MYOCARDIAL PERFUSION IMAGING STUDY WITH GATED SPECT IMAGES: CLINICAL INDICATION: Angina. PROCEDURE: Regional myocardial perfusion was assessed using a 1 day protocol. Stress images were obtained on 01/31/2017 following the intravenous administration of 17.9 mCi Tc 99m Myoview. Stress was performed using the standard Nadir protocol, with the patient reaching a peak heart rate of 93% maximal predicted heart rate. Rest images were obtained 01/31/2017 following the intravenous administration of 27.2 mCi Technetium 99m Myoview. Single photon emission tomographic (SPECT) images were obtained. SPECT images were acquired in a 64 x 64 matrix of 64 projections over 180 degrees. These were reconstructed into standard short axis, horizontal and vertical long axis cardiac projections. FINDINGS: The post stress images demonstrate the left ventricular chamber to be normal in size. There is homogeneous distribution of activity in the left ventricular myocardium with no regions of abnormally decreased activity noted. The resting images also demonstrate homogeneous distribution of activity in the left ventricular myocardium, and are not significantly changed from the post stress images. The stress images were obtained using a gated SPECT technique, which permits visualization of wall motion and calculation of the left ventricular ejection fraction. No left ventricular wall motion abnormalities are noted on the stress study. The calculated left ventricular ejection fraction is 74% on the stress study. No previous study is available for comparison. IMPRESSION: Normal exercise stress and resting myocardial perfusion study with normal left ventricular wall motion and ejection fraction. Disposition Summary Disposition Principal Diagnosis: unstable angina Additional Diagnosis: Diabetes mellitus TIA coronary artery disease status post stent placement Dyslipidemia Discharge Disposition: home or self care Discharge Instructions General Discharge Information Code Status: Full Code Patient's Diet: Heart healthy Patient's Activity: as tolerated Follow-Up Instructions/Appts: follow-up with primary care physician within one week of discharge follow-up with child & adolescent psychiatrist within 1 week of discharge lisinopril has been stopped and changed to losartan Medications at Discharge Discharge Medications: Stop taking the following medications: Lisinopril (Lisinopril) 5 MG TABLET ORAL DAILY Qty = 30 Continue taking these medications: Simvastatin (Simvastatin*) 40 MG TABLET 1 Tablet ORAL Every night Qty = 30 Comments: Last Taken: 01/31/17 Time: 5PM PT GIVEN ATORVASTATIN Metoprolol Tartrate (Metoprolol Tartrate) 25 MG TABLET 1 Tablet ORAL TWICE DAILY Qty = 60 Comments: Last Taken: 01/30/17 Time: 9PM Metformin HCl (Metformin HCl) 500 MG TABLET 2 Tablet ORAL TWICE DAILY Qty = 240 Comments: NOT GIVEN IN HOSPITAL Aspirin (Ecotrin*) 325 MG TABLET.DR 1 Tablet ORAL Every Morning Comments: Last Taken: 01/31/17 Time: 5PM Glipizide (Glipizide ER) 10 MG TAB.ER.24 1 Tablet ORAL Every Morning Qty = 30 Comments: NOT GIVEN IN HOSPITAL Start taking the following new medications: Losartan Potassium (Losartan Potassium) 25 MG TABLET 25 Milligram ORAL DAILY Qty = 30 No Refills Copies To: DARIAN CLAROS,TYLER Morris; DEANDRE CLAROS PhD,MANOJ Escobedo Attending MD Review Statement Documenting Attending: TUTU CLAROS,ULISSES Neal
--- NOTE | 2017-01-31 17:13 | NUCLEAR MEDICINE REPORT ---
EXERCISE STRESS AND RESTING SPECT MYOCARDIAL PERFUSION IMAGING STUDY WITH GATED SPECT IMAGES: CLINICAL INDICATION: Angina. PROCEDURE: Regional myocardial perfusion was assessed using a 1 day protocol. Stress images were obtained on 01/31/2017 following the intravenous administration of 17.9 mCi Tc 99m Myoview. Stress was performed using the standard Nadir protocol, with the patient reaching a peak heart rate of 93% maximal predicted heart rate. Rest images were obtained 01/31/2017 following the intravenous administration of 27.2 mCi Technetium 99m Myoview. Single photon emission tomographic (SPECT) images were obtained. SPECT images were acquired in a 64 x 64 matrix of 64 projections over 180 degrees. These were reconstructed into standard short axis, horizontal and vertical long axis cardiac projections. FINDINGS: The post stress images demonstrate the left ventricular chamber to be normal in size. There is homogeneous distribution of activity in the left ventricular myocardium with no regions of abnormally decreased activity noted. The resting images also demonstrate homogeneous distribution of activity in the left ventricular myocardium, and are not significantly changed from the post stress images. The stress images were obtained using a gated SPECT technique, which permits visualization of wall motion and calculation of the left ventricular ejection fraction. No left ventricular wall motion abnormalities are noted on the stress study. The calculated left ventricular ejection fraction is 74% on the stress study. No previous study is available for comparison. IMPRESSION: Normal exercise stress and resting myocardial perfusion study with normal left ventricular wall motion and ejection fraction.
--- NOTE | 2017-01-31 17:52 | PN- Cardiology ---
Subjective Subjective: * No chest discomfort. * stress test is WNL with normal EF Objective Vital Signs and I&Os Vital Signs Date Time Temp Pulse Resp B/P Pulse O2 O2 Flow FiO2 Ox Delivery Rate 01/31 1647 97.8 65 20 92/62 98 Room Air 01/31 1600 Room Air 01/31 1600 61 20 92/62 01/31 0800 97.9 80 20 122/80 96 / 0000 98.4 70 22 122/74 96 Room Air 01/30 2052 70 122/74 Intake & Output 01/31 1600 01/31 0800 01/31 0000 01/30 1600 01/30 0000 Intake Total 120 136 465.2 875 575 240 Output Total 800 Balance 120 136 465.2 75 575 240 Intake, IV 136 115.2 125 95 Intake, Oral 120 0 350 750 480 240 Number 0 0 Bowel Movements Output, Urine 800 Patient 145 lb Weight Physical Exam: General: WD/ WN female in NAD; alert and oriented x 3 HEENT: NC/AT, PERRL, EOMI, clear oropharyx with mmm Heart: RRR w/o murmur Lungs: clear bilaterally Extremties: no edema Assessment/Plan Assessment/Plan * Carly has resolution of her chest discomfort and her stress test is negative for ischemia. She is stable for discharge from a cardiac standpoint. * Continue her current drug regimen including Losartan instead of Lisinopril. There is the possibility of musculoskeletal pain due to coughing. Continue telemetry? No
== END 2017-01-31 18:45 | DRG 198 ==
LOC: ENRESERVTM → ENRESERVDT → ERH 14:38 → 1NO 17:28 → ERHI 17:28 → 1NO 19:55
PROVIDERS: Internal Medicine; Physician Assistant; ADMIT Internal Medicine
DX: I25.110 Atherosclerotic heart disease of native coronary artery with unstable angina pectoris (principal); I10 Essential (primary) hypertension; E11.9 Type 2 diabetes mellitus without complications; Z95.5 Presence of coronary angioplasty implant and graft; E78.5 Hyperlipidemia, unspecified; K21.9 Gastro-esophageal reflux disease without esophagitis; F17.210 Nicotine dependence, cigarettes, uncomplicated
CPT/HCPCS: 1NSP; 36415; 78452; 82436; 93005; 93010; 93016; 93017; 96374; 99291; A9502; J1644; J2405

== ENCOUNTER 2018-07-30 22:39 | Observation (INO) | payer OTHER ==
[~2018-07-30] VITALS: Ht 162.6 cm; Wt 68.0 kg
[~2018-07-30 22:39] MED LIST changes: +ASPIRIN EC81 M1 PO; +GLIPIZIDE ER10 M1 PO; +LISINOPRIL5 M1 PO; +LOSARTAN POTASS25 M1 PO; +METFORMIN HCL500 M3 PO; +METOPROLOL TART25 M1 PO; +SIMVASTATIN40 M1 PO
[2018-07-30 23:21] LABS: ABSOLUTE BASOPHIL COUNT 0.1 /CUMM (0.0-0.2); ABSOLUTE EOSINOPHIL COUNT 1.4 /CUMM (0.0-0.7); ABSOLUTE GRANULOCYTE CT 3.8 /CUMM (1.4-6.5); ABSOLUTE MONOCYTE COUNT 0.8 /CUMM (0.10-0.60); BASOPHIL % 0.8 % (0.0-2.0); EOSINOPHIL % 15.7 % (0-5); GRANULOCYTE % 41.6 % (42.2-75.2); HEMATOCRIT 42.3 % (37-47); MEAN CORPUSCULAR HGB 30.5 PG (27.0-31.0); MEAN CORPUSCULAR HGB CONC 32.9 G/DL (33.0-37.0); MEAN CORPUSCULAR VOLUME 92.8 FL (81.0-99.0); MEAN PLATELET VOLUME 8.4 FL (7.4-10.4); PLATELET COUNT 199 /CUMM (130-400); RBC DISTRIBUTION WIDTH 13.6 % (11.5-14.5); RED BLOOD CELL CT 4.55 /CUMM (4.20-5.40); WHITE BLOOD CELL COUNT 9.2 /CUMM (4.8-10.8)
[2018-07-30 23:22] LABS: PT 11.1 SEC (9.4-12.5); PTT 28 SEC (25-37)
--- NOTE | 2018-07-31 00:20 | RADIOLOGY REPORT ---
EXAMINATION: CHEST 1 VIEW CLINICAL INFORMATION: Chest pain. COMPARISON: None. TECHNIQUE: An AP view of the chest is provided. FINDINGS: The cardiac silhouette is not enlarged. The mediastinal and hilar contours are unremarkable. There are neither pleural effusions nor pneumothoraces. There are no consolidations. The osseous structures are unremarkable. IMPRESSION: No evidence for acute disease.
--- NOTE | 2018-07-31 00:36 | ED CARDIAC/CP/PALPITATIONS ---
History of Present Illness General Chief Complaint: Chest Pain Stated Complaint: PAIN IN L SHOULDER RADIATING DOWN BACK, CP Source: patient Exam Limitations: no limitations Vital Signs & Intake/Output Vital Signs & Intake/Output Vital Signs Date Time Temp Pulse Resp B/P B/P Pulse O2 O2 Flow FiO2 Mean Ox Delivery Rate 07/31 0307 98.1 54 18 138/72 97 Room Air 07/31 0206 96.6 62 16 169/74 97 07/31 0024 98 Room Air Room Air 07/31 0023 98.0 58 16 151/72 98 Room Air Room Air 07/30 2249 98.6 62 20 142/80 97 Room Air ED Intake and Output 07/31 0000 07/30 1200 Intake Total Output Total Balance Patient 150 lb Weight Allergies Coded Allergies: morphine (HYPERVENTILATE 01/29/17) Reconcile Medications Aspirin (Ecotrin*) 81 MG TABLET.DR 1 TAB PO DAILY Heart Health (Reported) Glipizide (Glipizide ER) 10 MG TAB.ER.24 1 TAB PO QAM DM (Reported) Losartan Potassium 25 MG TABLET 25 MG PO DAILY BLOOD PRESSURE Metformin HCl 500 MG TABLET 2 TAB PO BID DM (Reported) Metoprolol Tartrate 25 MG TABLET 1 TAB PO BID HEART/BP (Reported) Simvastatin (Simvastatin*) 40 MG TABLET 1 TAB PO QPM CHOLESTEROL (Reported) Triage Note: PT TO ED WITH C/O MIDSTERNAL CHEST PAIN RADIATING TO LEFT SHOULDER AND ARM. PAIN BEGAN 3 DAYS AGO BUT IS WORSE TODAY. ALSO REPORTS INTERMITTENT DIAPHORESIS AND SOB ON EXERTION. DENIES NAUSEA. HX CARDIAC STENT. Triage Nurses Notes Reviewed? yes Onset: Gradual Duration: day(s): Timing: recent history Quality/Severity: moderate Radiation: left shoulder Activities at Onset: none Prior Chest Pain/Card Workup: cardiac cath, heart attack Associated Symptoms: chest pain, left shoulder pain HPI: 63 yo woman h/o cad, cardiac stent several years ago, presents with 3 days of left sided chest pain radiating to her left shoulder. She notes that it is worse with movement and palpation, without diaphoresis or syncopal symptoms. She is otherwise well. Past History Travel History Traveled to [place] past 21 day No Medical History Any Pertinent Medical History? see below for history Neurological: migraine, TIA EENT: NONE Cardiovascular: CAD (s/p PCI of the LCX), hypertension, hyperlipidemia Respiratory: NONE Gastrointestinal: GERD Hepatic: GALLSTONES Renal: nephrolithiasis Musculoskeletal: NONE Psychiatric: insomnia Endocrine: diabetes Blood Disorders: NONE Cancer(s): NONE CREATIVE MANAGER/Reproductive: NONE History of MRSA: No History of VRE: No History of CDIFF: No Influenza Vaccine: 12/09/08 Surgical History Surgical History: cholecystectomy, hysterectomy (total abdominal), cardiac stent Psychosocial History Who do you live with Son Services at Home None What is your primary language Tajik Tobacco Use: Current Daily Use Daily Tobacco Use Amount/Type: => 5 Cigarettes daily ETOH Use: denies use Illicit Drug Use: denies illicit drug use Family History Family History, If Any: MOTHER FH: breast cancer in first degree relative MOTHER Relation not specified for: FH: diabetes mellitus Hx Contributory? No Review of Systems Review of Systems Constitutional: Reports: no symptoms. EENTM: Reports: no symptoms. Respiratory: Reports: no symptoms. Cardiovascular: Reports: no symptoms. GI: Reports: no symptoms. Genitourinary: Reports: no symptoms. Musculoskeletal: Reports: no symptoms. Skin: Reports: no symptoms. Neurological/Psychological: Reports: no symptoms. Hematologic/Endocrine: Reports: no symptoms. Immunologic/Allergic: Reports: no symptoms. All Other Systems: Reviewed and Negative Physical Exam Physical Exam General Appearance: well developed/nourished, no apparent distress Head: atraumatic, normal appearance Eyes: Bilateral: normal appearance. Ears, Nose, Throat: normal pharynx, normal ENT inspection Neck: normal inspection, supple, full range of motion Respiratory: normal breath sounds, no respiratory distress, left sided chest wall tenderness to palpation. left shoulder girdle musculature tenderness to palpation. Cardiovascular: regular rate/rhythm Gastrointestinal: normal bowel sounds, soft, non-tender, no organomegaly Back: normal inspection Extremities: normal inspection Neurologic/Psych: no motor/sensory deficits, awake, alert, oriented x 3 Core Measures ACS in differential dx? Yes No ASA d/t asa given CVA/TIA Diagnosis No Sepsis Present: No Sepsis Focused Exam Completed? No Progress Differential Diagnosis: AMI, unstable angina vs other. Plan of Care: Orders Procedure Date/time Status BASIC ELECTROLYTES PLUS BUN&CR 08/01 0600 Active Consistent Carbohydrate 3 07/31 B Active US-LIMITED ABDOMEN 07/31 1000 Active TROPONIN LEVEL 07/31 1000 Active EKG 07/31 1000 Active TROPONIN LEVEL 07/31 0500 Active EKG 07/31 0500 Active Vital Signs 07/31 040 Active Teach/Educate 07/31 401 Active Pain Treatment and Response 07/31 401 Active Nutritional Intake, Monitor 07/31 401 Active Isolation 07/31 401 Active Intake & Output 07/31 401 Active Patient Care Conference 07/31 401 Active Activity/Ambulation 07/31 401 Active Code Status 07/31 0247 Active Pathway - chart 07/31 100 Active House Staff 07/31 100 Active Patient Data 07/31 100 Active Code Status 07/31 100 Complete Saline Lock 07/[address] in observation 07/31 47 Active Misc Message 07/31 47 Active ED Holding Orders 07/31 47 Active Vital Signs 07/31 47 Active Code Status 07/31 47 Complete Intake & Output 07/31 0023 Active Lab Add-on Test 07/31 UNK Active VTE Mechanical Prophylaxis 07/31 UNK Active Telemetry/Thermoscrew Operator 07/31 UNK Active PARTIAL THROMBOPLASTIN TIME 07/30 230 Complete PROTHROMBIN TIME 07/30 230 Complete D-DIMER 07/30 230 Complete TROPONIN LEVEL 07/30 225 Complete COMPREHENSIVE METABOLIC PANEL 07/30 225 Complete CBC WITHOUT DIFFERENTIAL 07/30 225 Complete EKG 07/30 2240 Active Current Medications Sig/Fletcher Start time Last Medication Dose Stop Time Status Admin Atorvastatin Calcium 10 MG 1700 07/31 170 AC (Lipitor) Aspirin Buffered 81 MG DAILY 07/31 900 AC (Ecotrin) Enoxaparin Sodium 40 MG DAILY 07/31 900 AC (Lovenox) Losartan Potassium 25 MG DAILY 07/31 900 AC (Cozaar) Metoprolol Tartrate 25 MG BID 07/31 900 AC (Lopressor) Insulin Aspart 0 TIDAC 07/31 800 AC (NovoLOG) Acetaminophen 650 MG Q6P PRN 07/31 100 AC (Tylenol) Laboratory Tests 07/30/18 2300: Anion Gap 7, Estimated GFR > 60, BUN/Creatinine Ratio 25.0, Glucose 105 H, Calcium 9.7, Total Bilirubin 0.4, AST 67 H, ALT 100 H, Alkaline Phosphatase 79 , Troponin I < 0.01, Total Protein 6.7, Albumin 4.0, Globulin 2.7, Albumin/ Globulin Ratio 1.5, PT 11.1, INR 1.02, APTT 28, D-Dimer High Sensitivty < 200, CBC w Diff NO MAN DIFF REQ, RBC 4.55, MCV 92.8, MCH 30.5, MCHC 32.9 L, RDW 13.6 , MPV 8.4, Gran % 41.6 L, Lymphocytes % 32.9, Monocytes % 9.0, Eosinophils % 15.7 H, Basophils % 0.8, Absolute Granulocytes 3.8, Absolute Lymphocytes 3.0, Absolute Monocytes 0.8 H, Absolute Eosinophils 1.4, Absolute Basophils 0.1 Diagnostic Imaging: Viewed by Me: Radiology Read. Discussed w/RAD: Radiology Read. CXR Impression: PATIENT: LILIBETH DOMINGUEZ I PRESENT AGE: 63 PATIENT ACCOUNT NO: [id number] : 56 LOCATION: [facility] ORDERING PHYSICIAN: Basilio Duarte MD SERVICE DATE: 07/30/18 EXAM TYPE: RAD - XRY- PORTABLE CHEST XRAY EXAMINATION: CHEST 1 VIEW CLINICAL INFORMATION: Chest pain. COMPARISON: None. TECHNIQUE: An AP view of the chest is provided. FINDINGS: The cardiac silhouette is not enlarged. The mediastinal and hilar contours are unremarkable. There are neither pleural effusions nor pneumothoraces. There are no consolidations. The osseous structures are unremarkable. IMPRESSION: No evidence for acute disease. DICTATED BY: Francesco Bray MD DATE/TIME DICTATED:12 SALESPERSON FASHION ACCESSORIES:HARIS DATE/TIME TRANSCRIBED:07/31/1812 CONFIDENTIAL, DO NOT COPY WITHOUT APPROPRIATE AUTHORIZATION. <Electronically signed in Other Vendor System> SIGNED BY: Francesco Bray MD 07/31/1819 Initial ED EKG: normal axis, normal intervals, normal p-waves, normal QRS complex, normal sinus rhythm Departure Departure Disposition: STILL A PATIENT Condition: Stable Clinical Impression Primary Impression: Chest pain Referrals: Priyanka CLAROS,Black Morris (PCP/Family) Departure Forms: Customer Survey General Discharge Information Observation Note Spoke With: Terence Craig MD Patient In: Non-ED OBS Care Area Rationale for Observation: My rational for observation is as follows . pt with left sided chest pain, radiating to left shoulder, with a heart score of 4, placing her in moderate risk category. pt merits serial trops/monitoring/dr. adri to evaluate in the AM. Critical Care Note Critical Care Note Critical Care Time: non-applicable
--- NOTE | 2018-07-31 00:58 | History & Physical ---
Schuyler CLAROS,[facility] 07/31/18 0057: General Information and HPI MD Statement: I have seen and personally examined LILIBETH DOMINGUEZ I and documented this H&P. The patient is a 63 year old F who presented with a patient stated chief complaint of [chest pain]. Source of Information: patient Exam Limitations: no limitations History of Present Illness: 63 yo F with PMH of hypertension, diabetes, CAD, MA s/p stents presented to the ED for evaluation of chest pain. The patient states that since Sunday she has been feeling more tired with exertional shortness of breath like climbing a flight of stairs. Her symptoms persisted over the weekend. Earlier tonight while watching TV she initially started experiencing back pain between her shoulder blades with subsequent sharp left sided chest pain, radiating down her left arm which lasted for around an hour and a half. She took a full strength aspirin. She became concerned with her symptoms and came to the ED. She states that her stents were placed around 4-5 years ago. A repeat cardiac cath was done last year in January with no intervention performed at the time. She follows Dr Zelaya. Has been doing well otherwise. Currently at the time of interview she mentions chest tightness and burning sensation in her chest. Allergies/Medications Allergies: Coded Allergies: morphine (HYPERVENTILATE 01/29/17) Past History Travel History Traveled to [place] past 21 day No Medical History Neurological: migraine EENT: NONE Cardiovascular: CAD (s/p PCI of the LCX), hypertension, hyperlipidemia Respiratory: NONE Musculoskeletal: NONE Endocrine: diabetes Blood Disorders: NONE Cancer(s): NONE FOREST RANGER/Reproductive: NONE History of MRSA: No History of VRE: No History of CDIFF: No Influenza Vaccine: 12/09/08 Surgical History Surgical History: cholecystectomy, hysterectomy (total abdominal), cardiac stent Past Family/Social History Family History Relations & Conditions if any MOTHER FH: breast cancer in first degree relative MOTHER Relation not specified for: FH: diabetes mellitus Psychosocial History Who Do You Live With? self Services at Home: None Primary Language: Bolivian ETOH Use: denies use Illicit Drug Use: denies illicit drug use Functional Ability ADLs Independent: dressing, eating, toileting, bathing. Ambulation: independent IADLs Independent: shopping, housework, finances, food prep, telephone, transportation , medication admin. Review of Systems Review of Systems Constitutional: Reports: no symptoms. Exam & Diagnostic Data Last 24 Hrs of Vital Signs/I&O Vital Signs Date Time Temp Pulse Resp B/P B/P Pulse O2 O2 Flow FiO2 Mean Ox Delivery Rate 07/31 0206 96.6 62 16 169/74 97 07/31 0024 98 Room Air Room Air 07/31 0023 98.0 58 16 151/72 98 Room Air Room Air 07/30 2249 98.6 62 20 142/80 97 Room Air Intake & Output 07/31 0800 07/31 0000 07/30 1600 Intake Total 0 Output Total Balance 0 Intake, Oral 0 Patient 150 lb Weight Assessment/Plan Assessment: 63 yo F with PMH of hypertension, diabetes, CAD, MA s/p stents presented to the ED for evaluation of chest pain. Assesment: 1. Chest Pain 2. Elevated LFTs 3. History of MA s/p PCI 4. History of diabetes Plan: * Admit patient to telemetry in obs * R/o ACS with serial trops and EKGs * Cardiology consult in am with Dr Zelaya * Her LFTs are found to be mildly elevated. Reviewing old records, it shows patient has a positive HCV antibody with a extremely high viral load. * Will obtain a viral load. * RUQ U/S to assess for progression of liver disease since last scan. * Diet: Diabetic * DVT Prophylaxis: SC Lovenox * Code: DNR/DNI As Ranked By This Provider Problem List: 1. CHEST PAIN Core Measures/Misc (08/12) Acute Coronary Syndrome ACS Diagnosis: No Congestive Heart Failure Congestive Heart Failure Diagnosis No Cerebrovascular Accident CVA/TIA Diagnosis: No VTE (View Protocol) VTE Risk Factors Age>40 No Mechanical VTE Prophylaxis d/t N/A MechProphylax Ordered No VTE Pharm Prophylaxis d/t NA PharmProphylax ordered Sepsis (View protocol) Sepsis Present: No If YES complete Sepsis Event Note If YES complete Sepsis Event Note Terence Craig 07/31/18 0218: General Information and HPI Allergies/Medications Home Med list Aspirin (Ecotrin*) 81 MG TABLET. 1 TAB PO DAILY Heart Health (Reported) Glipizide (Glipizide ER) 10 MG TAB.ER.24 1 TAB PO QAM DM (Reported) Losartan Potassium 25 MG TABLET 25 MG PO DAILY BLOOD PRESSURE Metformin HCl 500 MG TABLET 2 TAB PO BID DM (Reported) Metoprolol Tartrate 25 MG TABLET 1 TAB PO BID HEART/BP (Reported) Simvastatin (Simvastatin*) 40 MG TABLET 1 TAB PO QPM CHOLESTEROL (Reported) Core Measures/Misc (08/12) Sepsis (View protocol) If YES complete Sepsis Event Note If YES complete Sepsis Event Note Attending MD Review Statement Attending Statement Attending MD Statement: examined this patient, discuss w/resident/PA/LICENSED INVESTMENT SALES ASSISTANT, agreed w/resident/PA/LICENSED INVESTMENT SALES ASSISTANT Attending Assessment/Plan: Addendum by . Patient was seen and examined at bedside today ( 07/31/18 ) at 2am. Reviewed the history physical done by the resident. Reviewed the past medical family, family, social history. ROS: 10 point system reviewed and negative except as described above. 63-year-old woman former smoker with past medical history significant for history of diabetes mellitus 2, dyslipidemia, TIA, coronary artery disease and is s/p stent placement to her left circumflex (April 2012). Agree with the physical examination done by the resident. EKG, labs reviewed A/p: #Atypical chest pain-complaints of chest tightness and some pain in the left upper extremity lasted for 1-1/2 hour and really wants on patient also took aspirin. Patient is complaining increased chest tightness and mild short of breath with exertion recently. Also has mid chest burning. EKG is negative for any ischemic signs. Facet troponins are negative. Given history of coronary disease and stent will consult cardiology for further recommendations. Patient had a stress test earlier this year which was negative for any ischemia would not order any further testing at this point. Continue with aspirin, statin, Beta-wesley. #Coronary artery disease status post left circumflex stent 4 years ago(2011) continue the medications from home. #Elevated LFTs-previous labs reviewed, has a history of hepatitis C. Not sure whether that was treated or not. Will get a hepatitis C viral load and hepatitis C antibody. Get the right upper quadrant ultrasound as well. #Chronic medical issues: Hyperlipidemia, diabetes mellitus, TIA, coronary disease with stent-continue the home medications. Continue the sliding scale for diabetes. Reviewed with the resident. Agree with the rest of the plan as per resident's note. Dr.Ravinder Yan MD. Hospitalist. Pager: [phone], cell: [phone].
[2018-07-31 03:07] VITALS: BP 138/72
[2018-07-31 07:20] VITALS: BP 156/80
--- NOTE | 2018-07-31 10:05 | ULTRASOUND REPORT ---
EXAMINATION: US ABDOMEN LIMITED CLINICAL INFORMATION: History of HCV. Elevated LFTs. History of fatty liver. COMPARISON: Abdominal ultrasound 05/06/2012. TECHNIQUE: Real-time imaging of the right upper quadrant abdominal viscera. FINDINGS: PANCREAS: Normal. LIVER: The liver demonstrates normal size, contour and echogenicity. No focal lesion or intrahepatic biliary duct dilatation. GALLBLADDER: The patient is status post cholecystectomy, demonstrated on prior imaging. COMMON BILE DUCT: Normal in caliber measuring 0.5 cm in diameter. RIGHT KIDNEY: There is no hydronephrosis. No renal calculi or focal parenchymal lesions. The kidney measures 11.3 cm in maximum dimension. FREE FLUID: None. IMPRESSION: 1. The patient is status post cholecystectomy. 2. The remainder of the study is unremarkable.
--- NOTE | 2018-07-31 11:32 | PN- Att Addend ---
Attending Addendum Attending Brief Note Patient seen and examined. Resting comfortably not in any acute distress. Denies any further chest pain at present. We did discuss with the patient her abnormal LFTs. She reports that in the past her physician may have told her that she has hepatitis C. She denies any further workup since that time. Vital Signs Date Time Temp Pulse Resp B/P B/P Pulse O2 O2 Flow FiO2 Mean Ox Delivery Rate 07/31 1106 65 156/80 07/31 1106 65 156/80 07/31 0720 98.9 65 22 156/80 96 Room Air 07/31 0307 98.1 54 18 138/72 97 Room Air 07/31 0206 96.6 62 16 169/74 97 07/31 0024 98 Room Air Room Air 07/31 0023 98.0 58 16 151/72 98 Room Air Room Air 07/30 2249 98.6 62 20 142/80 97 Room Air General appearance: Well-developed and not in any acute distress. HEENT: Anicteric, no pallor, pupils equal and reactive. Neck: Supple with no jugular venous distention. Heart: S1-S2 regular with no audible murmur. Lungs: Adequate and symmetric air entry bilaterally with no added sounds. Abdomen: Nondistended with normal bowel sounds. Soft, nontender with no palpable masses. Extremities: No pedal edema. No cyanosis. Skin: Intact Laboratory Tests 07/31/18 1035: Troponin I Pending 07/31/18 0505: Troponin I < 0.01, HCV RNA (PCR) IUs/ml Pending, HCV RNA PCR log IUs/ml Pending 07/30/18 2300: Anion Gap 7, Estimated GFR > 60, BUN/Creatinine Ratio 25.0, Glucose 105 H, Calcium 9.7, Total Bilirubin 0.4, AST 67 H, ALT 100 H, Alkaline Phosphatase 79 , Troponin I < 0.01, Total Protein 6.7, Albumin 4.0, Globulin 2.7, Albumin/ Globulin Ratio 1.5, PT 11.1, INR 1.02, APTT 28, D-Dimer High Sensitivty < 200, CBC w Diff NO MAN DIFF REQ, RBC 4.55, MCV 92.8, MCH 30.5, MCHC 32.9 L, RDW 13.6 , MPV 8.4, Gran % 41.6 L, Lymphocytes % 32.9, Monocytes % 9.0, Eosinophils % 15.7 H, Basophils % 0.8, Absolute Granulocytes 3.8, Absolute Lymphocytes 3.0, Absolute Monocytes 0.8 H, Absolute Eosinophils 1.4, Absolute Basophils 0.1 Problems: 1. Left-sided chest pain; resolved 2. History of coronary disease 3. Abnormal LFTs; with concern for hepatitis C. 4. Mda-nbwssqd-[id number] diabetes mellitus Recommendations: -Follow-up with cardiology service regarding need for any further ischemic workup in view of her significant history of coronary artery disease. -Patient is unaware of a history of hepatitis C. Follow-up hepatitis viral load ordered. If elevated patient should follow-up with the gastroenterology service as an outpatient. -Monitor blood glucose levels with sliding scale coverage.
--- NOTE | 2018-07-31 12:05 | Cons- Cardiology ---
"General Information and HPI Consulting Request Date of Consult: 07/31/18 Requested By: Nicolle Pineda MD History of Present Illness: Carly is a 63 year old female who carries a history of diabetes, TIA, and tobacco abuse. She also has a history of coronary artery disease and is s/p stent placement to her left circumflex. Carly has been active and has been feeling well until a couple days ago. She recently developed a cough and then subsequently noted a pinching sensation along her lower mid sternum that radiated toward her left arm prompting her presentation to the hospital. There was some associated diaphoresis and shortness of breath. She did have some nausea but it was at a different time independent of the chest pain. This discomfort did appear to worsen with activity and deep breathing improved it somewhat. It does not feel like the pain she experienced during prior episodes of myocardial ischemia. There are no acute ischemia changes on her ECG and she has ruled out for an ID by cardiac enzymes. She does have a mild rise in hepatic transaminases. She was last admitted to the hospital with atypical chest pain and ruled out for an ID. I thought the pain was musculoskeletal from persistent coughing and switched her from Lisinopril to Losartan. Her cough abated with this change. At baseline, Carly will become short of breath if she goes up a couple flights of stairs but this is unchanged. Last December this patient complained of chest discomfort and in response to this symptom I opted to repeat a cardiac catheterization. This study showed a 50% mid LAD lesion which was evaluated by fractional flow reserved and was not found to be flow limiting. She has a patent left main and luminal irregularities in her LCX and non-dominant RCA with an EF of 55% . Her LCX is patent at the prior stent site. She is having some intermittent cramps in her right leg. It may be recalled the Carly had a mild midsternal chest tightness associated with shortness of breath that was noted during snow shoveling and as such may have been musculoskeletal. On occasion, she also had a tingling sensation in her left arm. She did quit smoking. Previously Carly did feel her heart race, especially during physical activity. Finally, Carly had a remote complaint of a very sharp stabbing pain that lasted only a second or so. I did not think that this particular discomfort was related to myocardial ischemia. To Review This Patient's Past History: In March of 2012, Carly experienced a moderate midsternal chest pressure radiating to her arms associated with shortness of breath, diaphoresis, and palpitations. A stress test was therefore performed which was remarkable for chest discomfort and ST elevations in the inferior and lateral leads. ST depressions were also noted. In consideration of the above, cardiac catheterization was performed in April of 2012 and this procedure disclosed a 99% mid left circumflex lesion which was dilated and stented with a 4.0 x 12 mm drug coated Resolute stent to zero percent residual stenosis with normal flow. The stent crossed a moderate size obtuse marginal II which was dilated with a 2.0 x 8.0 mm balloon to a 30% non-flow limiting residual stenosis. Otherwise, the patient's coronary anatomy consists of a normal left main. The LAD had luminal irregularities. This was a large vessel that wrapped around the apex. The RCA was nondominant, patent, and tortuous. Her overall EF was normal at 55%. The patient's last echo showed a normal EF of 60% with trace MR and mild TR. Allergies/Medications Allergies: Coded Allergies: morphine (HYPERVENTILATE 01/29/17) Home Med List: Aspirin (Ecotrin*) 81 MG TABLET.DR 1 TAB PO DAILY Heart Health (Reported) Glipizide (Glipizide ER) 10 MG TAB.ER.24 1 TAB PO QAM DM (Reported) Losartan Potassium 25 MG TABLET 25 MG PO DAILY BLOOD PRESSURE Metformin HCl 500 MG TABLET 2 TAB PO BID DM (Reported) Metoprolol Tartrate 25 MG TABLET 1 TAB PO BID HEART/BP (Reported) Simvastatin (Simvastatin*) 40 MG TABLET 1 TAB PO QPM CHOLESTEROL (Reported) Review of Systems Review of Systems: occasional palpitations Past History Travel History Traveled to [place] past 21 day No Medical History Blood Transfusion Hx: No Neurological: migraine EENT: NONE Cardiovascular: CAD (s/p PCI of the LCX), hypertension, hyperlipidemia Respiratory: NONE Musculoskeletal: NONE Endocrine: diabetes Blood Disorders: NONE Cancer(s): NONE PERENNIAL HOUSE MANAGER/Reproductive: NONE Other Medical Hx: migraines Cholecystectomy laparoscopic surgery GERD dyslipidemia total abdominal hysterectomy Diabetes Mellitus renal lithiasis transient ischemic attack HYPERTENSION (401.9 | I10) Coronary artery disease Surgical History Surgical History: cholecystectomy, hysterectomy (total abdominal), cardiac stent Family History Relations & Conditions If Any: MOTHER FH: breast cancer in first degree relative MOTHER Relation not specified for: FH: diabetes mellitus Psychosocial History Who Do You Live With? self Services at Home: None Primary Language: Serbian Smoking Status: Current Everyday Smoker ETOH Use: denies use Illicit Drug Use: denies illicit drug use Functional Ability ADLs Independent: dressing, eating, toileting, bathing. Ambulation: independent IADLs Independent: shopping, housework, finances, food prep, telephone, transportation , medication admin. Exam & Diagnostic Data Vital Signs and I&O Vital Signs Date Time Temp Pulse Resp B/P B/P Pulse O2 O2 Flow FiO2 Mean Ox Delivery Rate 07/31 1106 65 156/80 07/31 1106 65 156/80 07/31 0720 98.9 65 22 156/80 96 Room Air 07/31 0307 98.1 54 18 138/72 97 Room Air 07/31 0206 96.6 62 16 169/74 97 07/31 0024 98 Room Air Room Air 07/31 0023 98.0 58 16 151/72 98 Room Air Room Air 07/30 2249 98.6 62 20 142/80 97 Room Air Intake & Output 07/31 1600 07/31 0800 07/31 0000 07/30 1600 07/30 0800 07/30 0000 Intake Total 200 Output Total Balance 200 Intake, Oral 200 Patient 150 lb 150 lb Weight Physical Exam: General: WD/WN female in NAD; alert and oriented x 3 HEENT: NC/AT, PERRL, EOMI Neck: no JVD, no carotid bruit Heart: RRR w/o murmur Lungs: clear bilaterally ABdomen: soft, mildly tender, +ve bowel sounds Extremities: no edema Assessment/Plan Assessment/Plan * This patient has had multiple episodes of atypical chest pain and likely has a musculoskeletal discomfort from coughing. There are no ischemic electrocardiographic changes and her troponins are normal. Nevertheless, this patient has had definite coronary artery disease in the past so I recommend risk stratification with a treadmill nuclear stress test. Her prior stent is open and there was a non-flow limiting 50% mid LAD lesion which we will are watching. I will continue her ARB, beta wesley and statin. * It should be recalled that this patient has a moderate size OM2 that underwent plain balloon angioplasty and this vessel is at increased risk for restenosis compared with a stented vessel. It did look good on her most recent cardiac catheterization. We will continue risk factor management. * The patient's blood pressure is a bit elevated today. Increase Losartan to 50mg daily. * The mild rise in hepatic transaminases may be related to her statin although this would not explain her abdominal tenderness. Would check an amylase and lipase. Do not hold her statin since the elevation of her enzymes is not greater than three times the upper limits of normal. Consult Acknowledgment - Thank you for your consult request."
[2018-07-31 14:34] VITALS: BP 136/68
[2018-07-31 21:38] VITALS: BP 126/72
[2018-08-01 06:19] VITALS: BP 128/66
--- NOTE | 2018-08-01 08:06 | PN- Housestaff ---
See Addendum Subjective Follow-up For: Chest pain Subjective: Overnight patient was in sinus bradycardia with heart rate ranging between 45-51 , had an episode of heart rate dropping to 35 at 0600. Patient is scheduled for stress test, is aware that the stress test machine with some mechanical problems , is open to having stress test completed as an outpatient.. Patient is complaining of back pain which was present yesterday as well, patient states pain is about the same describes it as a soreness/uncomfortable sensation. Denies chest pain, palpitations, shortness of breath, dizziness, confusion. Review of Systems Constitutional: Denies: chills, diaphoresis, fever. Cardiovascular: Denies: chest pain, palpitations. Respiratory: Denies: cough, short of breath. Objective Last 24 Hrs of Vital Signs/I&O Vital Signs Date Time Temp Pulse Resp B/P B/P Pulse O2 O2 Flow FiO2 Mean Ox Delivery Rate 08/01 619 97.6 61 18 128/66 94 Room Air 07/31 2138 98.4 59 18 126/72 95 Room Air 07/31 2133 64 142/76 07/31 1434 97.4 62 18 136/68 95 Room Air Intake & Output 08/01 1600 08/01 0800 08/01 0000 Intake Total 60 Output Total Balance 60 Intake, Oral 60 Physical Exam General Appearance: Alert, Oriented X3, Cooperative Neck: Supple, No JVD Cardiovascular: Regular Rate, Normal S1, Normal S2 Lungs: Clear to Auscultation, Normal Air Movement Extremities: No Clubbing, No Cyanosis, No Edema Vascular: Normal Pulses, Pulses Symmetrical Other Physical Findings: Negative for CVA tenderness. Did not appreciate lumbar paraspinal tenderness Current Medications: Current Medications Sig/Fletcher Start time Last Medication Dose Route Stop Time Status Admin Acetaminophen 650 MG Q6P PRN 07/31 0100 AC 07/31 PO 1536 Aspirin Buffered 81 MG DAILY 07/31 900 AC 07/31 PO 1107 Atorvastatin Calcium 10 MG 1700 07/31 1700 AC 07/31 PO 1635 Cyclobenzaprine HCl 10 MG ONCE ONE 08/01 930 DC PO 08/01 931 Enoxaparin Sodium 40 MG DAILY 07/31 900 AC 07/31 SC 1116 Insulin Aspart 0 TIDAC 07/31 800 AC SC Losartan Potassium 50 MG DAILY 08/01 900 AC PO Losartan Potassium 25 MG DAILY 07/31 900 DC 07/31 PO 1106 Metoprolol Tartrate 25 MG BID 07/31 900 AC 07/31 PO 2133 Last 24 Hrs of Lab/Tacos Results Last 24 Hrs of Labs/Mics: Laboratory Tests 08/01/18 0615: Anion Gap 4 L, Estimated GFR > 60, BUN/Creatinine Ratio 38.0 H, Total Bilirubin 0.2, Direct Bilirubin 0.2, AST 44 H, ALT 79 H, Alkaline Phosphatase 67, Total Protein 5.6 L, Albumin 3.1 L Assessment/Plan Assessment: Ms. Faria is a 63-year-old female who had presented to the emergency department on 07/31/2018 with complaints of chest pain which is radiating down to the left arm and back pain. Problem list: 1. Chest pain 2. Back pain 3. Elevated LFTs #Chest pain: Patient has had multiple episodes of unstable angina in the past, patient had a cardiac catheterization earlier this year which was normal per patient. She has multiple risk factors for coronary artery disease, and once again patient is presenting with chest pain which is worsened by exertion as she was tears. However the duration of the chest pain for 3 days is against the nature of ACS, patient also has negative EKG and troponins 3. test is normal will discharge patient home #Back pain. Patient is complaining of pain which is in the lumbar region, mid scapular and bilateral. The soreness and uncomfortable feeling as patient has been lying in bed for the past 2 days would indicate it is a muscle type of pain , patient does not have any neurological deficits in the lower extremities #Elevated LFTs: There is documentation stating patient has a history of hep C, however patient disputes that documentation stating that she has been once told of testing positive for her C but patient was never followed up. Patient has minimally elevated LFTs, other possible etiologies are statin use. Patient denies IV drug use patient denies history of alcoholism. LFTs have been trending down since admission workup CODE STATUS: DNR/DNI Diet: Heart healthy DVT prophylaxis: Lovenox Patient is undergoing stress test today, if stress test is negative plan to discharge patient home with referral to follow-up outpatient GI. Problem List: 1. Chest pain Pain Ratin Pain Location: N/A Pain Goal: Remain pain free Pain Plan: TYLENOL Tomorrow's Labs & Rationales: NONE
--- NOTE | 2018-08-01 10:30 | Patient Discharge Instructions ---
Discharge Instructions General Discharge Information You were seen/treated for: Chest pain Special Instructions: Please call and make a F/U with your PCP within one week after discharge Acute Coronary Syndrome Inclusion Criteria At DC or during hospital stay patient has or had the following: ACS DIAGNOSIS No Discharge Core Measures Meds if any: Prescribed or Continued at Discharge Meds if any: NOT Prescribed or Continued at Discharge Congestive Heart Failure Inclusion Criteria At DC or during hospital stay patient has or had the following: CHF DIAGNOSIS No Discharge Core Measures Meds if any: Prescribed or Continued at Discharge Meds if any: NOT Prescribed or Continued at Discharge Cerebrovascular accident Inclusion Criteria At DC or during hospital stay patient has or had the following: CVA/TIA Diagnosis No Discharge Core Measures Meds if any: Prescribed or Continued at Discharge Meds if any: NOT Prescribed or Continued at Discharge Venous thromboembolism Inclusion Criteria VTE Diagnosis No VTE Type NONE VTE Confirmed by (Test) NONE Discharge Core Measures - Per Current guidelines, there needs to be overlap - treatment for the first 5 days of Warfarin therapy. - If discharged on Warfarin prior to 5 days of - overlap therapy, the patient will need to be - assessed for post discharge needs including - *Post discharge parental anticoagulation - *Warfarin and/or parental anticoagulation education - *Follow up date to check INR post discharge At least 5 days overlap therapy as Inpatient No Meds if any: Prescribed or Continued at Discharge Note: Overlap Therapy is Warfarin and Anticoagulant Meds if any: NOT Prescribed or Continued at Discharge
--- NOTE | 2018-08-01 18:18 | NUCLEAR MEDICINE REPORT ---
EXERCISE STRESS AND RESTING SPECT MYOCARDIAL PERFUSION IMAGING STUDY WITH GATED SPECT IMAGES: CLINICAL INDICATION: Unstable angina, CAD status post PCI. PROCEDURE: Regional myocardial perfusion was assessed using a 1 day protocol. Stress images were obtained on 08/01/2018 following the intravenous administration of 18.1 mCi Tc 99m Myoview. Stress was performed using the standard Nadir protocol, with the patient reaching a peak heart rate of 94% maximal predicted heart rate. Rest images were obtained 08/01/2018 following the intravenous administration of 25.0 mCi Technetium 99m Myoview. Single photon emission tomographic (SPECT) images were obtained. SPECT images were acquired in a 64 x 64 matrix of 64 projections over 180 degrees. These were reconstructed into standard short axis, horizontal and vertical long axis cardiac projections. FINDINGS: The post stress images demonstrate the left ventricular chamber to be normal in size. There is homogeneous distribution of activity in the left ventricular myocardium with no regions of abnormally decreased activity noted. The resting images also demonstrate homogeneous distribution of activity in the left ventricular myocardium, and are not significantly changed from the post stress images. The stress images were obtained using a gated SPECT technique, which permits visualization of wall motion and calculation of the left ventricular ejection fraction. No left ventricular wall motion abnormalities are noted on the stress study. The calculated left ventricular ejection fraction is 65% on the stress study. Compared to the previous study dated 01/31/2017, there has not been a significant change in perfusion.. The gated images from the prior study are not available for review and the wall motion cannot be compared. The ejection fraction is slightly lower than on the previous study when it was 74%, but this mild change is unlikely to be clinically significant. IMPRESSION: Normal exercise stress and resting myocardial perfusion study with normal left ventricular wall motion and ejection fraction.
--- NOTE | 2018-08-01 19:07 | PN- Cardiology ---
Subjective Subjective: * No chest discomfort. * Stress test is negative for ischemia. Objective Vital Signs and I&Os Vital Signs Date Time Temp Pulse Resp B/P B/P Pulse O2 O2 Flow FiO2 Mean Ox Delivery Rate 08/01 1653 78 140/64 08/01 1503 78 140/64 08/01 0619 97.6 61 18 128/66 94 Room Air 07/318 98.4 59 18 126/72 95 Room Air 07/31 2133 64 142/76 Intake & Output 08/01 0000 07/31 0000 Intake Total 60 60 450 200 Output Total Balance 60 60 450 200 Intake, IV 10 Intake, Oral 50 60 450 200 Number 1 Bowel Movements Patient 150 lb 150 lb Weight Physical Exam: General: WD/WN female in NAD; alert and oriented x 3 HEENT: NC/AT, PERRL, EOMI Neck: no JVD, no carotid bruit Heart: RRR w/o murmur Lungs: clear bilaterally ABdomen: soft, mildly tender, +ve bowel sounds Extremities: no edema Assessment/Plan Assessment/Plan * This patient has had multiple episodes of atypical chest pain and likely has a musculoskeletal discomfort from coughing. There are no ischemic electrocardiographic changes and her troponins are normal. Her stress test is also negative for ischemia. This patient is stable for discharge from a cardiac standpoint. Continue her ARB, beta wesley and statin. Continue telemetry? No
[2018-08-01 20:21] VITALS: BP 134/74
== END 2018-08-01 20:20 ==
LOC: ERH 22:39 → 1NO 07-31 00:47 → ERHI 07-31 00:47 → ENRESERV 07-31 01:12 → 1NO 07-31 02:50 → ENPENDDIS 08-01 18:27 → 1NO 08-01 20:20
PROVIDERS: Emergency Medicine; Pediatrics
DX: R07.89 Other chest pain (principal); Z79.82 Long term (current) use of aspirin; E11.9 Type 2 diabetes mellitus without complications; Z79.84 Long term (current) use of oral hypoglycemic drugs; I25.10 Atherosclerotic heart disease of native coronary artery without angina pectoris; Z95.5 Presence of coronary angioplasty implant and graft; G45.9 Transient cerebral ischemic attack, unspecified; G43.909 Migraine, unspecified, not intractable, without status migrainosus; F17.200 Nicotine dependence, unspecified, uncomplicated; B18.2 Chronic viral hepatitis C; M54.9 Dorsalgia, unspecified; I10 Essential (primary) hypertension; E78.5 Hyperlipidemia, unspecified; K21.9 Gastro-esophageal reflux disease without esophagitis; N20.0 Calculus of kidney; G47.00 Insomnia, unspecified
CPT/HCPCS: 36592; 71045; 78452; 82436; 93005; 93010; 93016; 93017; 96372; 96374; 96375; A9502; G0378; J0131; J1650; J1885; J3101